=== PATIENT | male | born 1955 | race Caucasian/White ===

== ENCOUNTER 2022-08-26 22:04 | Emergency (ER) | payer OTHER, SELFPAY ==
[2022-08-26 22:06] VITALS: BP 148/92; PULSE 79; RESP 20; TEMP 36.6; O2SAT 95; BMI 25.1
[2022-08-26 23:46] VITALS: BP 132/90; PULSE 83; RESP 15; TEMP 36.8; O2SAT 95
--- OUTSIDE RECORDS SUMMARY | 2022-08-26 23:51 | XMS_ITS | Continuity of Care Document ---
:1955 Author Organization [facility] Address [address] [place] [address]- Care Team Providers Name Role Phone Al Hamlin MD Primary Care Physician Encounter 02/13/20 - 02/20/20 [facility] [address] [place] [address]- [facility] Discharge Disposition: GOALS MET Allergies, Adverse Reactions, Alerts No Known Medication Allergies Medications Etanercept Subcutaneous Infusion, Every week, 0 Refills, Maintenance, 02/11/20 1:28:00 EDT Start Date: 02/11/20 Status: Orderedgabapentin 100 mg oral capsule 100 mg, 1, capsule, By Mouth, 3 times a day, # 90 capsule, Refills 0, Tot. Refills 0, Maintenance, 02/12/20 13:36:00 EDT, Route to Pharmacy Electronically, [facility]/pharmacy #[id number], 180, cm, 02/12/20 12:08:00 EDT, Height, 84, kg, 02/11/20 9:25:00 EDT, Dry W... Start Date: 02/12/20 Status: OrderedMethotrexate = 2 mg, Every week, 0 Refills, Maintenance, 02/11/20 1:30:00 EDT Start Date: 02/11/20 Status: Ordered
--- OUTSIDE RECORDS SUMMARY | 2022-08-26 23:51 | XMS_ITS | Continuity of Care Document ---
:1955 Author Organization [facility] Address [address] [place] [id number]- Care Team Providers Name Role Phone Al Hamlin MD Primary Care Physician [place] [facility] [place] 03/13/[address] [address]- [facility] Attending Physician: Not on Staff, Attending MD Admitting Physician: Not on Staff, Admitting MD Referring Physician: Not on Staff, Referring MD Allergies, Adverse Reactions, Alerts No Known Medication Allergies Medications Etanercept Subcutaneous Infusion, Every week, 0 Refills, Maintenance, 02/11/20 1:28:00 EDT Start Date: 02/11/20 Status: Orderedgabapentin 100 mg oral capsule 100 mg, 1, capsule, By Mouth, 3 times a day, # 90 capsule, Refills 0, Tot. Refills 0, Maintenance, 02/12/20 13:36:00 EDT, Route to Pharmacy Electronically, [facility]/pharmacy #[id number], 180, cm, 02/12/20 12:08:00 EDT, Height, 84, kg, 02/11/20 9:25:00 EDT, Dry W... Start Date: 02/12/20 Status: OrderedMethotrexate = 2 mg, Every week, 0 Refills, Maintenance, 02/11/20 1:30:00 EDT Start Date: 02/11/20 Status: Ordered
--- OUTSIDE RECORDS SUMMARY | 2022-08-26 23:52 | XMS_ITS | Continuity of Care Document ---
:1955 Author Organization [facility] Address [address] [place] [id number]- Care Team Providers Name Role Phone Al Hamlin MD Primary Care Physician Encounter [facility] [place] Date(s): 02/10/20 - 02/12/[address] [address]- [facility] Encounter Diagnosis Acetabular fracture (Final) - 02/10/20 Discharge Disposition: A-D/C Home Attending Physician: Kemi Villalobos DO Admitting Physician: Cory Melendez DO Referring Physician: Not on Staff, Referring MD Allergies, Adverse Reactions, Alerts No Known Medication Allergies Medications Etanercept Subcutaneous Infusion, Every week, 0 Refills, Maintenance, 02/11/20 1:28:00 EDT Start Date: 02/11/20 Status: Orderedgabapentin 100 mg oral capsule 100 mg, 1, capsule, By Mouth, 3 times a day, # 90 capsule, Refills 0, Tot. Refills 0, Maintenance, 02/12/20 13:36:00 EDT, Route to Pharmacy Electronically, [facility]/pharmacy #[id number], 180, cm, 02/12/20 12:08:00 EDT, Height, 84, kg, 02/11/20 9:25:00 EDT, Dry W... Start Date: 02/12/20 Status: OrderedMethotrexate = 2 mg, Every week, 0 Refills, Maintenance, 02/11/20 1:30:00 EDT Start Date: 02/11/20 Status: OrderedoxyCODONE 5 mg oral tablet 5 mg, 1, tablet, By Mouth, Every 6 hours, PRN, for 5 days, # 20 tablet, Refills 0, Tot. Refills 0, Acute 02/17/20 13:36:00 EDT, Pain , Severe, 02/12/20 13:36:00 EDT, Route to Pharmacy Electronically, [facility]/pharmacy #[id number], Partial fill upon patient reque... Start Date: 02/12/20 Stop Date: 02/17/20 Status: Ordered Results Radiology Reports Exam Date Time Procedure Performing Provider Status 02/10/20 3:03 PM Elbow Min 3 Views Left Azul Peoples; Auth (Ve rified) Notes:(Elbow Min 3 Views Left) Reason For Exam: PainRESULT: Elbow Min 3 Views Left Elbow Min 3 Views Left, 3 views Reason: Pain; Clinical Question(s): Fracture; Hx of Present Illness: Fall from ladder 10 ft. COMPARISON: None. FINDINGS: No fracture or dislocation. No arthritic changes. No joint effusion. IMPRESSION: No acute osseous injury identified. WSN: [id number] Ordering Physician: Albaro Villagomez Dictated By: Jin Dumont MD Dictated Date/Time: 02/10/20 3:12 pm Reviewed By: Jin Dumont MD Signed By: Jin Dumont MD Signed Date/Time: 02/10/20 3:12 pm Transcribed By: TANVIR Transcribed Date/Time: 02/10/20 3:09 pm Vital Signs Most recent to oldest [Reference 1 2 3 Range]: Height 180 cm 180 cm 180 cm (02/12/20 12:08 PM) (02/12/20 8:04 AM) (02/12/20 4:10 AM) Weight 84 kg (02/11/20 1:03 AM) Oxygen Saturation [94-100 %] 94 % 94 % 95 % (02/12/20 12:08 PM) (02/12/20 8:04 AM) (02/12/20 4:10 AM) Pulse Rate [55-90 bpm] 58 bpm 68 bpm 75 bpm (02/12/20 12:08 PM) (02/12/20 8:04 AM) (02/12/20 4:10 AM) Body Mass Index [18.5-24.99] 25.93 *H* (02/11/20 1:03 AM) Blood Pressure [90-138/55-84 mm 105/64 mm Hg 102/67 mm Hg 102/73 mm Hg Hg] (02/12/20 12:08 PM) (02/12/20 8:04 AM) (02/12/20 4:10 AM) Respiratory Rate [16-30 br/min] 18 br/min 18 br/min 18 br/min (02/12/20 3:31 PM) (02/12/20 12:08 PM) (02/12/20 9:42 AM) Temperature [96.8-100.4 DegF] 98.1 DegF 97.3 DegF 98 .0 DegF (02/12/20 12:08 PM) (02/12/20 8:04 AM) (02/12/20 4:10 AM) Mode of Delivery (Oxygen) Room air Room air Room a ir (02/12/20 12:08 PM) (02/12/20 8:04 AM) (02/12/20 4:10 AM) Blood pressure sites Arm, right Arm, right Arm, right (02/12/20 12:08 PM) (02/12/20 8:04 AM) (02/12/20 4:10 AM) Temperature Route Oral Oral Oral (02/12/20 12:08 PM) (02/12/20 8:04 AM) (02/12/20 4:10 AM) Dry Weight 84 kg (02/11/20 1:03 AM)
--- OUTSIDE RECORDS SUMMARY | 2022-08-26 23:52 | XMS_ITS | Continuity of Care Document ---
:1955 Author Organization [facility] Address [address] [place] [id number]- Care Team Providers Name Role Phone El MOREIRA MD, Cedric Hopkins Primary Care Physician [place] [facility] [place]/14/20 - 08/14/[address] [address]- [facility] Discharge Disposition: A-D/C Home Attending Physician: Topher Gregorio MD Admitting Physician: Topher Gregorio MD Referring Physician: Topher Gregorio MD Allergies, Adverse Reactions, Alerts No Known Medication Allergies Medications Etanercept Subcutaneous Infusion, Every week, 0 Refills, Maintenance, 02/11/20 1:28:00 EDT Start Date: 02/11/20 Status: Orderedgabapentin 100 mg oral capsule 100 mg, 1, capsule, By Mouth, 3 times a day, # 90 capsule, Refills 0, Tot. Refills 0, Maintenance, 02/12/20 13:36:00 EDT, Route to Pharmacy Electronically, [facility]/pharmacy #[id number], 180, cm, 02/12/20 12:08:00 EDT, Height, 84, kg, 02/11/20 9:25:00 EDT, Dry W... Start Date: 02/12/20 Status: OrderedMethotrexate = 2 mg, Every week, 0 Refills, Maintenance, 02/11/20 1:30:00 EDT Start Date: 02/11/20 Status: Ordered Vital Signs Most recent to oldest 1 2 3 [Reference Range]: Weight 83.8 kg (08/14/20 1:00 PM) Oxygen Saturation [94-100 %] 98 % 99 % 97 % (08/14/20 5:00 PM) (08/14/20 4:00 PM) (08/14/20 3:5 7 PM) Pulse Rate [55-90 bpm] 95 bpm 94 bpm *H* *H* (08/14/20 5:00 PM) (08/14/20 1:00 PM) Blood Pressure [90-138/55-84 mm 111/72 mm Hg 116/81 mm Hg 125/81 mm Hg Hg] (08/14/20 5:00 PM) (08/14/20 4:00 PM) (08/14/20 3:5 7 PM) Respiratory Rate [16-30 br/min] 18 br/min 18 br/min 21 br/min (08/14/20 5:00 PM) (08/14/20 4:00 PM) (08/14/20 3:5 7 PM) Temperature [96.8-100.4 DegF] 97.7 DegF 98.9 DegF 98 .9 DegF (08/14/20 5:15 PM) (08/14/20 5:00 PM) (08/14/20 1:0 0 PM) Liters per Minute 2 L/min 2 L/min 2 L/min (08/14/20 4:00 PM) (08/14/20 3:57 PM) (08/14/20 3:5 5 PM) Mode of Delivery (Oxygen) Room air Nasal cannula Nasal cannula (08/14/20 5:00 PM) (08/14/20 4:00 PM) (08/14/20 3:5 7 PM) Blood pressure sites Arm, right Arm, right Arm, right (08/14/20 5:00 PM) (08/14/20 3:57 PM) (08/14/20 3:5 5 PM) Temperature Route Temporal Temporal Temporal (08/14/20 5:15 PM) (08/14/20 5:00 PM) (08/14/20 1:0 0 PM) Dry Weight 83.8 kg (08/14/20 1:00 PM)
--- NOTE | 2022-08-27 | PC.NURSE ---
Pt states he noticed he had something on his back similar to a cyst and continued to increase in size in the midsection of his back. Onset 5 days ago. He states feeling pressure in the area and that movement increases the pain. Patient denies n/v/d, headache, diarrhea. Patient denies any other symptoms aside from the localized pain coming from the cyst .
--- NOTE | 2022-08-27 00:17 | ED_ITS ---
HPI - Skin/Abscess/Foreign Bdy General Chief complaint: Skin/Abscess/Foreign Body Stated complaint: Infection/Cyst on back Time Seen by Provider: 08/26/22 23:33 Source: patient Mode of arrival: ambulatory Limitations: no limitations History of Present Illness HPI narrative: 67 yold male presents to the ED for back abscess that is draining. He states mass has been present for the past 4 days. he states the past two days it has increased in size draining the past two days Related Data Previous Rx's Medication Instructions Recorded cephalexin 500 mg capsule 500 mg PO QID 7 days #28 caps 08/27/22 doxycycline hyclate 100 mg capsule 100 mg PO BID 7 days #14 caps 08/27/22 Allergies Allergy/AdvReac Type Severity Reaction Status Date / Time No Known Allergies Allergy Verified 08/26/22 22:08 Review of Systems Review of Systems: back absces Yes all other systems are reviewed and are negative [facility] Past Medical History Medical History (Updated 08/27/22 @ 01:26 by DARIAN Griffiths) Rheumatoid arthritis Social History Social History Alcohol intake: never Smoked in Last 30 Days: No Use of substances other than those prescribed or required for medical reasons: No Advance Directives: No Physical Exam Vital Signs: Vital Signs: Last Vital Signs Temp 98.2 F 08/26/22 23:46 Pulse 83 08/26/22 23:46 Resp 15 08/26/22 23:46 BP 132/90 H 08/26/22 23:46 Pulse Ox 95 08/26/22 23:46 O2 Del Method 08/26/22 23:46 BMI result Body Mass Index 25.1 Const: General: cooperative, healthy appearing, comfortable, no acute distress, well developed, alert, awake and Physically active Orientation/consciousness: oriented to time and patient oriented x3 HEENT: Head: Yes normal to inspection, Yes No palpable skull fracture present, Yes normocephalic, Yes atraumatic and No abrasion Eyes: General: appearance normal, both eyes and all related structures Neck: Neck: Yes normal visual inspection, Yes full ROM, Yes no lymphadenopathy, Yes no meningeal signs, Yes trachea midline, Yes supple, No anterior neck swelling and No tender Chest: Chest palpation & inspection: normal inspection of the chest and normal palpation of entire chest wall Resp: Effort & Inspection: normal respiratory effort and able to speak in complete sentences Auscultation: clear to auscultation bilaterally Cardio: Jugular venous distension: no JVD Heart sounds: S1 normal heart sound present and S2 normal heart sound present GI: Inspection: Yes normal to inspection and No abdominal wall ecchymosis Palpation (GI): Soft to palpation, not firm, nontender, no guarding and not rigid : General: No CVA tenderness and Yes no CVA tenderness Back/Spine/Pelvis: Back: no CVA tenderness, No CVA tenderness and No back tenderness Back/spine/pelvis image: 1. Positive for tenderness erythema drainage or fluctuance on palpation Skin: Other: Back abscess General skin exam: no rashes or lesions noted and elasticity normal Neuro: General: oriented to time, patient oriented x3, gait normal, no meningeal signs and CN's II-XI intact bilaterally Cranial nerves: Yes CN's II-XII intact bilaterally Extrem: General: Yes normal to inspection and Yes full ROM Psych: Appearance: grossly normal, well kempt and not disheveled Course Course Course Narrative: Will drain abscess. Reevaluation(s) Reevaluation #1: Abscess and exercises 8 mL of lidocaine 1%. Wound clean with sterile saline and Betadine iodine. Size 11 blade was used for incision. Yellow pus was squeezed. Forceps used to open pockets to squeeze more abscess. Abscess washout was done with sterile saline. Packing placed. Tdap ordered. Patient to be discharged with antibiotics Time: 01:25 MDM - Skin/Abscess/Foreign Bdy MDM Narrative Medical decision making narrative: Abscess Discharge Plan Discharge Clinical Impression: Abscess of skin or subcutaneous tissue Patient Disposition: Home, Self-Care Additional Instructions: You will be discharged with antibiotics. Return to the ED immediately for worsening pain, increased drainage, fever, chills, or any other concerning symptoms. Packing should be changed in the ED in 2 days. Also follow up with PCP Prescriptions: New cephalexin 500 mg capsule 500 mg PO QID 7 Days Qty: 28 0RF doxycycline hyclate 100 mg capsule 100 mg PO BID 7 Days Qty: 14 0RF Stand Alone Forms: Work/School Release Print Language: Italian
[2022-08-27] MEDS: Diphth,Pertus(ACell),Tet Adult 0.5 ML SYRINGE IM (01:52)
[2022-08-27 02:00] VITALS: BP 131/88; PULSE 73; RESP 13; TEMP 36.9; O2SAT 97
--- NOTE | 2022-08-27 02:00 | PC.NURSE ---
Discharge instructions given and explained to patient. All of patient's questions answered. Patient ambulates safely, steady gait. Dtap booster 0.5 ml IM booster administered at discharge, site L deltoid.
[2022-08-27] MEDS: Lidocaine HCl 1 % MPF 2 ML VIAL INFILTRATI ×4 (02:13→02:14)
== END 2022-08-27 02:15 | disposition home or self-care (01) ==
PROVIDERS: Emergency Provider Student in an Organized Health Care Education/Training Program
DX: L02.212 Cutaneous abscess of back [any part, except buttock and flank] (principal)
CPT/HCPCS: 10061; 90471; 90715; 99284

== ENCOUNTER 2023-08-21 17:19 | Emergency (ER) | payer MEDICARE, SELFPAY ==
[2023-08-21 17:31] VITALS: BP 102/67; PULSE 90; RESP 16; TEMP 36.8; O2SAT 95; BMI 27.1
--- NOTE | 2023-08-21 17:32 | ED_ITS ---
HPI - Back Pain/Injury General Chief Complaint: Back Pain/Injury Stated Complaint: lower back pain Time Seen by Provider: 08/21/23 17:40 Source: patient Mode of arrival: ambulatory Limitations: no limitations History of Present Illness HPI Narrative: 68-year-old male with history of rheumatoid arthritis, previous herniated disc presents to the ER with complaints of lower back pain after bending over on and feeling pain in his back. No radiation of pain. No numbness/ tingling/ weakness in extremities. No numbness the groin. No bowel or bladder incontinence. No fevers or chills. Patient trying [id number] medications with continued symptoms. Related Data Previous Rx's Medication Instructions Recorded cephalexin 500 mg capsule 500 mg PO QID 7 days #28 caps 08/27/22 doxycycline hyclate 100 mg capsule 100 mg PO BID 7 days #14 caps 08/27/22 cyclobenzaprine 10 mg tablet 10 mg PO TID PRN muscle spasm #15 08/21/23 tabs lidocaine 5 % topical patch 1 patch topical DAILY #15 ea 08/21/23 (Lidoderm) prednisone 20 mg tablet 40 mg (2 x 20 mg) PO DAILY #10 tabs 08/21/23 Allergies Allergy/AdvReac Type Severity Reaction Status Date / Time No Known Allergies Allergy Verified 08/26/22 22:08 Review of Systems Review of Systems: Yes all other systems are reviewed and are negative Constitutional: Constitutional: Reports no additional constitutional c omplaints, Denies body ache(s), Denies chills, Denies fever(s), Denies headache(s) and Denies weakness Eyes: Eyes: Reports no additional eye complaints and Denies change in vision ENT: Reports system reviewed and no additional complaints, except as documented, Denies dizziness, Denies headache(s), Denies nasal congestion, Denies nasal discharge and Denies neck pain Cardiovascular: Cardiovascular: Reports no additional cardiovascular complaints, Denies chest pain, Denies leg edema and Denies dyspnea Respiratory: Respiratory: Reports no additional respiratory complaints, Denies cough and Denies dyspnea Gastrointestinal: Gastrointestinal: Reports no additional gastrointestinal complaints, Denies abdominal pain, Denies diarrhea, Denies nausea and Denies vomiting Genitourinary: Genitourinary: Denies urinary incontinence Musculoskeletal: Musculoskeletal: Reports no additional musculoskeletal complaints, Reports back pain, Denies arthralgias, Denies joint swelling, Denies neck pain, Denies numbness and Denies tingling Integumentary/Breasts: Skin/Breast: Reports system reviewed and no additional complaints, except as docu and Denies rash Neurologic: Reports system reviewed and no additional complaints, except as documented, Denies Abnormal speech present, Denies dizziness, Denies headache(s), Denies numbness, Denies tingling and Denies weakness PMF Past Medical History Attestation statement: The following information was validated with the patient. Source: old records reviewed and nursing notes reviewed Medical History Rheumatoid arthritis Social History Social History Alcohol intake: never Physical Exam Vital Signs: Vital Signs: Last Vital Signs Temp 98.2 F 08/21/23 17:31 Pulse 90 08/21/23 17:31 Resp 16 08/21/23 17:31 BP 102/67 08/21/23 17:31 Pulse Ox 95 08/21/23 17:31 O2 Del Method Room Air 08/21/23 17:31 BMI result Body Mass Index 27.1 Const: General: cooperative, healthy appearing, comfortable and no acute distress Orientation/consciousness: patient oriented x3 Limitations: no limitations HEENT: Head: Yes normal to inspection Ears: hearing grossly normal bilaterally General nose exam: Normal external nose present Face and sinus: Yes normal facial exam Mouth: Normal oral and palatal mucosa present Throat: Yes posterior oropharynx normal Eyes: General: appearance normal, both eyes and all related structures Pupils: Equal, round and reactive pupils present Neck: Neck: Yes normal visual inspection Chest: Chest palpation & inspection: normal inspection of the chest Resp: Effort & Inspection: normal respiratory effort Auscultation: clear to auscultation bilaterally Cardio: Rate: regular rate Rhythm: regular rhythm Peripheral pulses: Peripheral pulses 2+ throughout GI: Inspection: Yes normal to inspection Palpation (GI): Soft to palpation and nontender Auscultation: normal bowel sounds Back/Spine/Pelvis: Other: There is tenderness the lumbar lower spine, bilateral paraspinal areas which is worsened with flexion and extension of the lumbar spine. Thoracic/Lumbar Spine: thoracic and lumbar spine normal to inspection Skin: General skin exam: no rashes or lesions noted Neuro: General: patient oriented x3, no focal motor deficits and normal sensation to monofilament Cranial nerves: Yes Equal, round and reactive pupils present Cognition (Neuro): normal cognition Speech: No Abnormal speech present Gait exam (Neuro): Normal gait present Motor exam (neuro): 5/5 motor strength present throughout Sensory Exam: Normal double simultaneous stimulation for sensation Deep tendon reflexes (DTR's): Right patellar reflex intensity grade: 2+ and Left patellar reflex intensity grade: 2+ Extrem: General: Yes normal to inspection Medical Decision Making Medical Decision Making MDM Narrative: 68-year-old male with history of rheumatoid arthritis, previous herniated disc presents to the ER with complaints of lower back pain after bending over on and feeling pain in his back. No radiation of pain. No numbness/ tingling/ weakness in extremities. No numbness the groin. No bowel or bladder incontinence. No fevers or chills. Patient trying [id number] medications with continued symptoms. Normal neuro exam with no focal deficits. No red flag symptoms. Likely lumbar strain. Patient will be discharged home with Flexeril, Lidoderm patches, prednisone course. Recommend he follow up outpatient with primary care for any continued symptoms. He is currently working on establishing 1. He may need outpatient MRI for any continued symptoms. I do not feel that he needs an emergent MRI. Reviewed worrisome signs and symptoms when to return to the emergency room. Comfortable plan for discharge home. Differential Diagnosis Differential Diagnoses: The differential diagnosis associated with the presentation includes Herniated disc, lumbar strain Low concern for cord compression, cauda equina, epidural abscess with normal neuro exam with no focal deficits, no red flag symptoms, no history of immunocompromise state or IV drug abuse Low concern for fracture with no reports of trauma Low concern for renal colic or pyelonephritis with no urinary symptoms. Low concern for AAA gradual onset of symptoms. Low concern for malignancy with no red flag symptoms Admission/Observation Consideration of admission/observation: Escalation of care including admission/observation considered normal neuro exam with no focal deficits, no need for emergent MRI, neurosurgery consultation or transfer to tertiary care center. Tests considered The following testing was considered but not selected: normal neuro exam with no focal deficits, no need for emergent MRI, Prescription Management I considered prescription management with: Pain Medication Social Determinants Patient?s care significantly limited by Social Determinants of Health including: Problems related to primary support group Discharge Plan Discharge Clinical Impression: Lumbar strain Patient Disposition: Home, Self-Care Instructions: Low Back Strain (ED) Additional Instructions: heat or ice to the area gentle stretching continue Motrin or Tylenol establish a primary care doctor as he may need to have an outpatient MRI for any continued symptoms. Return for incontinence of urine/stool, fever, numbness in the groin Prescriptions: New cyclobenzaprine 10 mg tablet 10 mg PO TID PRN (Reason: muscle spasm) Qty: 15 0RF lidocaine [Lidoderm] 5 % adhesive patch,medicated 1 patch topical DAILY Qty: 15 0RF Rx Instructions: leave on most painful area for up to 12 hrs prednisone 20 mg tablet 40 mg PO DAILY Qty: 10 0RF No Action cephalexin 500 mg capsule 500 mg PO QID 7 Days Qty: 28 0RF doxycycline hyclate 100 mg capsule 100 mg PO BID 7 Days Qty: 14 0RF Referrals: Physician,Unknown J [Primary Care Provider] -
== END 2023-08-21 17:46 | disposition home or self-care (01) ==
PROVIDERS: Emergency Provider Student in an Organized Health Care Education/Training Program
DX: S39.012A Strain of muscle, fascia and tendon of lower back, initial encounter (principal); X50.9XXA Other and unspecified overexertion or strenuous movements or postures, initial encounter; Y93.9 Activity, unspecified; Y92.9 Unspecified place or not applicable; Y99.9 Unspecified external cause status
CPT/HCPCS: 99282; 99283

== ENCOUNTER 2024-01-27 12:04 | Emergency (ER) | payer MEDICARE, SELFPAY ==
[2024-01-27 12:12] VITALS: BP 131/87; PULSE 85; RESP 16; TEMP 36.4; O2SAT 96; BMI 24.9
--- NOTE | 2024-01-27 12:15 | ED_ITS ---
HPI - General Adult General Chief complaint: Dental/Oral Stated complaint: mouth sores Time Seen by Provider: 01/27/24 12:57 History of Present Illness HPI narrative: patient with history of rheumatoid arthritis complains of mouth sores which began after he started taking antibiotics for a possible sinus infection prescribed by his primary doctor He took a course of amoxicillin without relief of his congestion and runny nose with green mucus so he was then prescribed a 2nd course of 14 days of doxycycline and developed sores in his mouth, he saw his doctor 3 days ago and was started on nystatin mouthwash and magic mouthwash for thrush, he has been taking the medicine for several days and it has not improved and his sinuses continue to be mildly congested with occasional green mucus He denies shortness of breath he denies headache he denies sinus pain, pain is not worse with his head down, no fever no chills no nausea no vomiting no cough no chest pain no trouble swallowing, but there is some mild pain with swallowing Related Data Previous Rx's ?Medication ?Instructions ?Recorded cephalexin 500 mg capsule 500 mg PO QID 7 days #28 caps 08/27/22 doxycycline hyclate 100 mg capsule 100 mg PO BID 7 days #14 caps 08/27/22 cyclobenzaprine 10 mg tablet 10 mg PO TID PRN muscle spasm #15 08/21/23 tabs lidocaine 5 % topical patch 1 patch topical DAILY #15 ea 08/21/23 (Lidoderm) prednisone 20 mg tablet 40 mg (2 x 20 mg) PO DAILY #10 tabs 08/21/23 Allergies Allergy/AdvReac Type Severity Reaction Status Date / Time No Known Allergies Allergy Verified 01/27/24 12:14 [facility] Past Medical History Medical History Rheumatoid arthritis Social History Social History Alcohol intake: never Physical Exam ED Vital Signs: Vital Signs - 24 hr 01/27/24 12:12 Temperature 97.5 F Pulse Rate 85 Respiratory Rate 16 Blood Pressure 131/87 Pulse Oximetry 96 Oxygen Delivery Method Room Air BMI result Body Mass Index 24.9 general appearance, comfortable cooperative no acute distress Eyes no redness or discharge The mouth there is a white coating on the tongue that scrapes off with the tongue depressor, the mucous membranes are moist, the pharynx appeared normal the voice was normal there is no trismus, no impairment of breathing or swallowing Neck is supple without stridor The sinuses were nontender, no pain when he bends his head forward, no evidence of congestion now The chest is clear to auscultation with full symmetric equal breath sounds Heart no murmur Extremities full range of motion x4 Course Course Course Narrative: This is an RME: Additional HPI, ROS, PE not included below will be deferred to primary provider. 68 year old male presents w/ sores on mouth x few days wrosening. Recently on ATBX X2. On magic mouth wash and nystatin and not helping Patient just started course of treatment for thrush, exam confirms it is likely thrush and so he will continue the present treatment He is advised most sinus problems are virus but as is started the doxycycline for a possible bacterial infection he will continue his antibiotic He is advised that if symptoms do not improve after treatment he should see his doctor for referral to Ear Nose and Throat as he has had symptoms of postnasal drip and sinus congestion for a very long time Discharge Plan Discharge Additional Instructions: you are being treated with antibiotic for sinusitis by her doctor It may help but in many cases if it has a virus the antibiotic may not help You have thrush in her mouth and your doctor prescribed very good treatment with nystatin mouthwash so continue all treatments until completed If needed follow with primary doctor and ask for referral to ear nose and throat as you mentioned you have had chronic problems off and on for many months with her sinuses Return to the ER any time any worse condition or any concerns Prescriptions: No Action cephalexin 500 mg capsule 500 mg PO QID 7 Days Qty: 28 0RF doxycycline hyclate 100 mg capsule 100 mg PO BID 7 Days Qty: 14 0RF cyclobenzaprine 10 mg tablet 10 mg PO TID PRN (Reason: muscle spasm) Qty: 15 0RF lidocaine [Lidoderm] 5 % adhesive patch,medicated 1 patch topical DAILY Qty: 15 0RF Rx Instructions: leave on most painful area for up to 12 hrs prednisone 20 mg tablet 40 mg PO DAILY Qty: 10 0RF Print Language: Georgian
--- NOTE | 2024-01-27 13:46 | PC.NURSE ---
discharged by provider
== END 2024-01-27 13:47 | disposition home or self-care (01) ==
PROVIDERS: Emergency Provider Emergency Medicine; PCP Internal Medicine
DX: K13.79 Other lesions of oral mucosa (principal); J32.9 Chronic sinusitis, unspecified
CPT/HCPCS: 99281

== ENCOUNTER 2025-10-06 01:23 | Emergency (ER) | payer MEDICARE, SELFPAY ==
--- NOTE | 2025-10-06 | ECG_ITS ---
Test Reason : CHEST TIGHTNESS Blood Pressure : */* mmHG Vent. Rate : 74 BPM Atrial Rate : 74 BPM P-R Int : 188 ms QRS Dur : 100 ms QT Int : 394 ms P-R-T Axes : 72 -32 53 degrees QTcB Int : 437 ms Normal sinus rhythm Left axis deviation Abnormal ECG No previous ECGs available Referred By: Generic ED Physician Electronically Signed By: TALI GRAF MD
--- NOTE | ~2025-10-06 | CT_ITS ---
CLINICAL HISTORY: Fall; Unwitnessed; + Head strike; ? LOC CT cervical spine without contrast Comparison: None provided Findings: There is straightening of the normal cervical lordosis. There is grade 1 anterolisthesis of C4 on C5. Multilevel cervical spine degenerative changes are present characterized by disc height loss, endplate sclerosis and disc osteophyte complex formation. No acute fractures or dislocations. No acute findings on limited view of the intracranial contents. Soft tissues of the neck are normal. Lung apices are clear. IMPRESSION: No acute findings. This document has been electronically signed by: Kalia Lala MD, PHD on 10/06/2025 04:13:54
--- NOTE | ~2025-10-06 | CT_ITS ---
CLINICAL HISTORY: Fall; Unwitnessed; + Head strike; ? LOC CT head without contrast Comparison: None provided Findings: No intra-axial mass, midline shift, hydrocephalus, or acute hemorrhage. No significant atrophy-like change or white matter disease. There is no sinus or mastoid fluid. The orbits are unremarkable. No skull fracture. IMPRESSION: 1. No acute intracranial findings. This document has been electronically signed by: Kalia Lala MD, PHD on 10/06/2025 04:12:25
[2025-10-06 01:31] VITALS: BP 112/70; BP 115/69; PULSE 72; PULSE 80; RESP 18; TEMP 37.1; O2SAT 97; O2SAT 98; BMI 24.4
[2025-10-06 01:37] VITALS: BP 115/69; PULSE 80; RESP 18; TEMP 37.1; O2SAT 98
[2025-10-06 01:54] LABS: MANUAL DIFF FLAG NO
[2025-10-06 01:56] LABS: Hematocrit 48.0 % (42.0-52.0); Hemoglobin 17.2 g/dl (14.0-18.0); Imm Gran Abs Auto 0.03 X10*3/uL (0.00-0.03); Imm Gran Pct Auto 0.3 % (0.0-0.4); Lymphocytes Absolute Auto 0.6 X10*3/uL (1.2-4.9); Mean Corpuscular HGB Conc 35.8 g/dl (31.0-36.0); Mean Corpuscular Hemoglobin 33.2 pg (27.0-33.0); Mean Corpuscular Volume 92.7 fL (80.0-98.0); NRBC Abs Auto 0.000 X10*3/uL (0.0-0.012); NRBC Pct Auto 0.0 /100WBC (0.0-0.2); Platelet Count 198 X10*3/uL (160-400); Red Blood Count 5.18 X10*6/uL (4.60-5.80); White Blood Count 8.9 X10*3/uL (4.8-10.8)
--- OUTSIDE RECORDS SUMMARY | 2025-10-06 02:17 | XMS_ITS ---
Author Name [facility] Organization Unknown Care Team Organization Name Specialty Phone Email Start Date End Da te [facility] FLORY SANDOVAL Primary Care 08/18/2022 4
--- OUTSIDE RECORDS SUMMARY | 2025-10-06 02:17 | XMS_ITS | Encounter Summary ---
Author Organization [facility] Address [address] [place] [address] Care Team Providers Care Preforms Laminator Name Role Phone Lissy Mercedes MD Primary Care Provider Encounter Details Date Type Department Care Team ([facility] Contact Info) Description 08/07/2025 Results Follow-Up Adult Medicine [address] [phone] Lissy Mercedes MD [address] [place] [address] Social History Tobacco Use Types Packs/Day Years Used Date Smoking Tobacco: Former Cigarettes 0 Q uit: 10/11/1977 Smokeless Tobacco: Never Alcohol Use Standard Drinks/Week Comments Yes 0 (1 standard drink = 0.6 oz pur e alcohol) Sex and Gender Information Value Date Recorded Sex Assigned at Not on file Legal Sex Male 9:34 PM EST Gender Identity Not on file Sexual Orientation Not on file documented as of this encounter Plan of Treatment Upcoming Encounters Date Type Department Care Team (Late Contact Info) Description 10/23/2025 9:30 AM EST Office Visit Adult Medicine [address] [phone] Lissy Mercedes MD [address] [place], [place] [id number] 12/10/2025 8:30 AM EST Consult Orthopedic Surgery - [address] [phone] Omari Mayfield DPM [address] [address] 12/14/2025 11:00 AM EST Hospital Encounter [facility] [place] [address] [place] [phone] Omari Mayfield DPM [address] [address] 12/14/2025 11:00 AM EST - 12/14/2025 1:30 PM EST Surgery [facility] OR [address] [place] [phone] Omari Mayfield DPM [address] [address] CHEILECTOMY RIGHT GREAT TOE [06116 (CPT )] 12/27/2025 8:30 AM EDT Office Visit Orthopedic Surgery - [place] [phone] [phone] Omari Mayfield DPM [address] [address] 04/23/2026 10:00 AM EDT Office Visit Adult Medicine [address] [phone] Lissy Mercedes MD [address] [place] [address] Scheduled Procedures Name Priority Associated Diagnoses Date/Ti me CHEILECTOMY GREAT TOE Arthritis of right foot Hammertoe of right foot 12/14/2025 11:00 AM EST ARTHROPLASTY TOE Arthritis of right foot Hammertoe of right foot 12/14/2025 11:00 AM EST documented as of this encounter Visit Diagnoses Not on filedocumented in this encounter Care Teams Preforms Laminator Relationship Specialty Start Date End Date Lissy Mercedes MD [address] [place] [address] PCP - General 12/04/22 documented as of this encounter
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
--- OUTSIDE RECORDS SUMMARY | 2025-10-06 02:17 | XMS_ITS | Data Portability ---
Author Organization [place] [facility], Allergy Address [address] [place] [id number] Care Team Providers Care Beater Out Leveling Machine Name Role Phone BHARATH JIN Primary Care Provider Assessment Encounter Date Assessment Date Assessment LastModified by Organization Details LastModified Time 12/01/2024 12/01/2024 69 year old male presents for follow up of sinusitis. He completed three week course of Doxycycline. His symptoms have not fully resolved. He is still bothered by green drainage. Nasal endoscopy today did not reveal polyps or purulence. I have issued him a prescription for Prednisone. Risks including AVN of the hip were discussed. He has taken Prednisone in the past and tolerated it well. Budesonide was prescribed to use in his sinus rinse. I will see him back in a couple of months. If his symptoms persist he may benefit from CT sinus at that time. Nasal endoscopy performed with Dr. Domingo. Not available 12/01/2024 14:49:44 02/26/2025 02/26/2025 70 year old male with recurrent sinusitis. He reports some improvement in his symptoms with three week course of Doxycyline followed by a course of Prednisone. I advised him to continue daily sinus rinses. I have renewed his prescription for Ipratropium. He reports continued sinus congestion and I have recommended updated CT of his sinuses and follow up with Dr. Breaux for further evaluation. Not available 02/26/2025 13:11:23 06/28/2025 06/28/2025 Chronic sinus inflammation is likely exacerbated by occupational exposure to dust, mold, and chemicals, as well as underlying allergies and immune suppression due to methotrexate use for rheumatoid arthritis. The patient also has a deviated septum, which may impair sinus drainage but does not predispose him to infections. I will order blood tests to evaluate for allergies and immune system function, including titers for common bacterial infections and protection from vaccines such as the pneumonia vaccine. Allergy testing will include panels for trees, grass, weeds, dust, mold, dog, and cat allergens. The patient will proceed to the second floor for blood work. I will review the results and communicate findings through the patient portal. If titers are low, additional vaccinations may be recommended. Further management will be based on the results of the allergy and immune panel. [email or web address] Not available 06/28/2025 08:53:39 Plan of Treatment Reminders Order Date Submit Date Provider Last Modified By Organization Details Last Modified Time Details Appointments None recorded. Lab unlisted lab - allergens, zone 1 2024 [facility], [address], [place], [address], 03:18:05 clostridium tetani toxoid IgG Ab, QN, IA, serum or plasma 2024 025 [facility] ([facility] - All Locations), Patient Can Go To The Location Of Their Choice, 5 03:18:04 haemophilus influenzae B IgG Ab, quantitativ e, serum, immunoassay 2024 [facility] ([facility] - All Locations), Patient Can Go To The Location Of Their Choice, 5 03:18:04 unlisted lab - pneumococca l Ab (23 serotype) 2024 [facility] - [facility]), Patient Can Go To The Location Of Their Choice, 03:18:02 CBC w/ auto diff 2024 [facility] ([facility] - All Locations), Patient Can Go To The Location Of Their Choice, 5 03:18:01 ige, total, serum 2024 025 [facility] ([facility] - All Locations), Patient Can Go To The Location Of Their Choice, 5 03:18:06 immunoglobu mallory iga+igg+igm , quantitativ e, serum 2024 025 [facility] (Centralized Electronic Ordering - All Locations), Patient Can Go To The Location Of Their Choice, 5 03:18:03 igg subclasses + total, serum 2024 025 [facility] (Centralized [facility] Ordering - All Locations), Patient Can Go To The Location Of Their Choice, [id number] 5 03:18:03 Referral None recorded. Procedures None recorded. Surgeries None recorded. Imaging CT, maxillofaci al, w/o contrast 2024 025 [facility], [address] [place] [address] [place], [address], 13:27:37 Medication Orders ipratropium bromide 21 mcg (0.03 %) nasal spray 2024 025 [facility]/Pharmacy #[id number], [address] [place], [address], 10:25:07 prednisone 20 mg tablet 2024 025 [email or web address] [facility]/Pharmacy #[id number], [address] [place], [address], 08:29:56 budesonide 0.5 mg/2 mL suspension for nebulizatio n 2024 025 [email or web address] [facility]/Pharmacy #[id number], [address] [place], [address], 15:14:59 Patient TargetsNo targets recorded. Patient Instructions Encounter Date Encounter Id Patient Instructions Last Modified By Organization Details Last Modified Time 06/28/2025 [id number] - Proceed to the second floor for blood work. - Await communication through the patient portal regarding test results and further recommendations. christy Not available 06/28/2025 08:53:40 Please note: Parts of this encounter note have been generated by AI based on audio conversation. Patient consent was required prior to utilizing this technology. Content review was required prior to finalizing the note. christy Not available 06/28/2025 08:53:40 Reason for Referral None Reported. Results Created Date Observation Date Name Description Value Unit Range Abnormal Flag Note LastModifiedBy Organization Detail LastModifiedTime 06/28/2006/28/2025 CBC WITH DIFFE RENTI AL/PL ATELE T WBC 5.0 x10e3 /uL 3.4-10 .8 normal Not Available [facility] ([facility]) [address] [place], [address], 07/04/2025 03:17:59 06/28/2006/28/2025 CBC WITH DIFFE RENTI AL/PL ATELE T RBC 4.61 x10e6 /uL 4.14-5 .80 normal Not Available [facility] ([facility]) [address] [place], [address], 07/04/2025 03:17:59 06/28/2006/28/2025 CBC WITH DIFFE RENTI AL/PL ATELE T hemoglobin 15.3 g/dL 13.0-1 7.7 normal Not Available [facility] ([facility]) [address] [place], [address], 07/04/2025 03:17:59 06/28/2006/28/2025 CBC WITH DIFFE RENTI AL/PL ATELE T hematocrit 45.5 % 37.5-5 1.0 normal Not Available [facility] ([facility]) [address] [place], [address], 07/04/2025 03:17:59 06/28/2006/28/2025 CBC WITH DIFFE RENTI AL/PL ATELE T MCV 99 fL 79-97 above high normal Not Available [facility] ([facility]) [address] [place], [address], 07/04/2025 03:17:59 06/28/20 25 06/28/2025 CBC WITH DIFFE RENTI AL/PL ATELE T MCH 33.2 pg 26.6-3 3.0 above high normal Not Available [facility] ([facility]) [address] [facility], [place], [address], 07/04/2025 03:17:59 06/28/20 25 06/28/2025 CBC WITH DIFFE RENTI AL/PL ATELE T MCHC 33.6 g/dL 31.5-3 5.7 normal Not Available [facility] ([facility]) [address] [facility], [place], [address], 07/04/2025 03:17:59 06/28/20 25 06/28/2025 CBC WITH DIFFE RENTI AL/PL ATELE T RDW 13.6 % 11.6-1 5.4 Not Available [facility] ([facility]) [address] [facility], [place], [address], 07/04/2025 03:17:59 06/28/20 25 06/28/2025 CBC WITH DIFFE RENTI AL/PL ATELE T platelets 204 x10e3 /uL 150-45 0 normal Not Available [facility] ([facility]) [address] [facility], [place], [address], 07/04/2025 03:17:59 06/28/2006/28/2025 CBC WITH DIFFE RENTI AL/PL ATELE T neutrophils 62 % not estab. normal Not Available [facility] ([facility]) [address] [facility], [place], [address], 07/04/2025 03:17:59 06/28/20 25 06/28/2025 CBC WITH DIFFE RENTI AL/PL ATELE T lymphs 23 % not estab. normal Not Available [facility] ([facility]) [address] [place], [address], 07/04/2025 03:17:59 06/28/20 25 06/28/2025 CBC WITH DIFFE RENTI AL/PL ATELE T monocytes 9 % not estab. normal Not Available [facility] ([facility]) [address] [place], [address], 07/04/2025 03:17:59 06/28/20 25 06/28/2025 CBC WITH DIFFE RENTI AL/PL ATELE T eos 5 % not estab. normal Not Available [facility] ([facility]) [address] [facility], [place], [address], 07/04/2025 03:17:59 06/28/2006/28/2025 CBC WITH DIFFE RENTI AL/PL ATELE T basos 1 % not estab. normal Not Available [facility] ([facility]) [address] [facility], [place], [address], 07/04/2025 03:17:59 06/28/20 25 06/28/2025 CBC WITH DIFFE RENTI AL/PL ATELE T immature cells RESIDENTIAL SUPPORT SPECIALIST Not Available [facility] ([facility]) [address] [place], [address], 07/04/2025 03:17:59 06/28/20 25 06/28/2025 CBC WITH DIFFE RENTI AL/PL ATELE T neutrophils (absolute) 3.2 x10e3 /uL 1.4-7. 0 normal Not Available [facility] ([facility]) [address] [place], [address], 07/04/2025 03:17:59 06/28/20 25 06/28/2025 CBC WITH DIFFE RENTI AL/PL ATELE T lymphs (absolute) 1.2 x10e3 /uL 0.7-3. 1 normal Not Available [facility] ([facility]) [address] [place], [address], 07/04/2025 03:17:59 06/28/20 25 06/28/2025 CBC WITH DIFFE RENTI AL/PL ATELE T monocytes(ab solute) 0.4 x10e3 /uL 0.1-0. 9 normal Not Available [facility] ([facility]) [address] [facility], [place], [address], 07/04/2025 03:17:59 06/28/20 25 06/28/2025 CBC WITH DIFFE RENTI AL/PL ATELE T eos (absolute) 0.3 x10e3 /uL 0.0-0. 4 normal Not Available [facility] ([facility]) [address] [facility], [place], [address], 07/04/2025 03:17:59 06/28/20 25 06/28/2025 CBC WITH DIFFE RENTI AL/PL ATELE T baso (absolute) 0.0 x10e3 /uL 0.0-0. 2 normal Not Available [facility] ([facility]) [address] [facility], [place], [address], 07/04/2025 03:17:59 06/28/20 25 06/28/2025 CBC WITH DIFFE RENTI AL/PL ATELE T immature granulocytes 0 % not estab. Not Available [facility] ([facility]) [address] [facility], [place], [address], 07/04/2025 03:17:59 06/28/20 25 06/28/2025 CBC WITH DIFFE RENTI AL/PL ATELE T immature grans (abs) 0.0 x10e3 /uL 0.0-0. 1 Not Available [facility] ([facility]) [address] [place], [address], 07/04/2025 03:17:59 06/28/20 25 06/28/2025 CBC WITH DIFFE RENTI AL/PL ATELE T NRBC RESIDENTIAL SUPPORT SPECIALIST Not Available [facility] ([facility]) [address] [place], [address], 07/04/2025 03:17:59 06/28/2006/28/2025 CBC WITH DIFFE RENTI AL/PL ATELE T hematology comments: RESIDENTIAL SUPPORT SPECIALIST Not Available [facility] ([facility]) [address], [place], [address], 07/04/2025 03:17:59 06/28/20 25 07/04/2025 PNEUM OCOCC AL AB (23 SEROT YPE) pneumo Ab type 1* 2.1 ug/mL >1.3 Not Available [facility] [address] [place], [address], 07/04/2025 03:18:02 06/28/2007/04/2025 PNEUM OCOCC AL AB (23 SEROT YPE) pneumo Ab type 3* 0.4 ug/mL >1.3 below low normal Not Available [facility] [address] [place], [address], 07/04/2025 03:18:02 06/28/2007/04/2025 PNEUM OCOCC AL AB (23 SEROT YPE) pneumo Ab type 4* 0.5 ug/mL >1.3 below low normal Not Available [facility] [address] [place], [address], 07/04/2025 03:18:02 06/28/2007/04/2025 PNEUM OCOCC AL AB (23 SEROT YPE) pneumo Ab type 8* 0.9 ug/mL >1.3 below low normal Not Available [facility] [address] [place], [address], 07/04/2025 03:18:02 06/28/2007/04/2025 PNEUM OCOCC AL AB (23 SEROT YPE) pneumo Ab type 9 (9N)* 3.3 ug/mL >1.3 Not Available [facility] [address] [place], [address], 07/04/2025 03:18:02 06/28/20 25 07/04/2025 PNEUM OCOCC AL AB (23 SEROT YPE) pneumo Ab type 12 (12F)* 0.2 ug/mL >1.3 below low normal Not Available [facility] [address] [place], [address], 07/04/2025 03:18:02 06/28/2007/04/2025 PNEUM OCOCC AL AB (23 SEROT YPE) pneumo Ab type 14* 4.4 ug/mL >1.3 Not Available [facility] [place], [address], 07/04/2025 03:18:02 06/28/2007/04/2025 PNEUM OCOCC AL AB (23 SEROT YPE) pneumo Ab type 17 (17F)* 0.6 ug/mL >1.3 below low normal Not Available [facility] [employer] [place], [address], 07/04/2025 03:18:02 06/28/2007/04/2025 PNEUM OCOCC AL AB (23 SEROT YPE) pneumo Ab type 19 (19F)* 2.3 ug/mL >1.3 Not Available [facility] [employer] [place], [address], 07/04/2025 03:18:02 06/28/2007/04/2025 PNEUM OCOCC AL AB (23 SEROT YPE) pneumo Ab type 2* 1.0 ug/mL >1.3 below low normal Not Available [facility] [place], [address], 07/04/2025 03:18:02 06/28/2007/04/2025 PNEUM OCOCC AL AB (23 SEROT YPE) pneumo Ab type 20* 21.5 ug/mL >1.3 Not Available [facility] [place], [address], 07/04/2025 03:18:02 06/28/2007/04/2025 PNEUM OCOCC AL AB (23 SEROT YPE) pneumo Ab type 22 (22F)* 0.6 ug/mL >1.3 below low normal Not Available [facility] [place], [address], 07/04/2025 03:18:02 06/28/2007/04/2025 PNEUM OCOCC AL AB (23 SEROT YPE) pneumo Ab type 23 (23F)* 15.3 ug/mL >1.3 Not Available [facility] [place], [address], 07/04/2025 03:18:02 06/28/2007/04/2025 PNEUM OCOCC AL AB (23 SEROT YPE) pneumo Ab type 26 (6B)* >34.0 ug/mL >1.3 Not Available [facility] [place], [address], 07/04/2025 03:18:02 06/28/2007/04/2025 PNEUM OCOCC AL AB (23 SEROT YPE) pneumo Ab type 34 (10A)* 9.5 ug/mL >1.3 Not Available [facility] [place], [address], 07/04/2025 03:18:02 06/28/2007/04/2025 PNEUM OCOCC AL AB (23 SEROT YPE) pneumo Ab type 43 (11A)* >11.6 ug/mL >1.3 Not Available [facility] [place], [address], 07/04/2025 03:18:02 06/28/2007/04/2025 PNEUM OCOCC AL AB (23 SEROT YPE) pneumo Ab type 5* 0.8 ug/mL >1.3 below low normal Not Available [facility] [place], [address], 07/04/2025 03:18:02 06/28/2007/04/2025 PNEUM OCOCC AL AB (23 SEROT YPE) pneumo Ab type 51 (7F)* 3.8 ug/mL >1.3 Not Available [facility] [address] [place] [address] [place], [address], 07/04/2025 03:18:02 06/28/2007/04/2025 PNEUM OCOCC AL AB (23 SEROT YPE) pneumo Ab type 54 (15B)* 6.0 ug/mL >1.3 Not Available [facility] [address] [place], [address], 07/04/2025 03:18:02 06/28/2007/04/2025 PNEUM OCOCC AL AB (23 SEROT YPE) pneumo Ab type 56 (18C)* >12.2 ug/mL >1.3 Not Available [facility] [place], [address], 07/04/2025 03:18:02 06/28/2007/04/2025 PNEUM OCOCC AL AB (23 SEROT YPE) pneumo Ab type 57 (19A)* 4.4 ug/mL >1.3 Not Available [facility] [address] [place], [address], 07/04/2025 03:18:02 06/28/2007/04/2025 PNEUM OCOCC AL AB (23 SEROT YPE) pneumo Ab type 68 (9V)* 4.3 ug/mL >1.3 Not Available [facility] [address] [place], [address], 07/04/2025 03:18:02 06/28/2007/04/2025 PNEUM OCOCC AL AB (23 SEROT YPE) pneumo Ab type 70 (33F)* 13.5 ug/mL >1.3 *This test was jade valadez and its perfo sacha e holli sterlingri stics deter mined by [employer] [facility]. It has not been clear ed or appro angelo by the U.S. Food and Drug Admin istra tion. FLAG Inter preta tion: A = Abnor mal, H = High, L = Low Not Available [facility] [address], [place], [address], 07/04/2025 03:18:02 06/28/20 25 06/29/2025 IGG, SUBCL ASSES (1-4) immunoglobul in g, qn, serum 998 mg/dL 603-16 13 Not Available [facility] ([facility]) [address] [place], [address], 07/04/2025 03:18:03 06/28/20 25 06/30/2025 IGG, SUBCL ASSES (1-4) IgG, subclass 1 430 mg/dL 248-81 0 Not Available [facility] ([facility]) [address] [place], [address], 07/04/2025 03:18:03 06/28/20 25 06/30/2025 IGG, SUBCL ASSES (1-4) IgG, subclass 2 342 mg/dL 130-55 5 Not Available [facility] ([facility]) [address] [place], [address], 07/04/2025 03:18:03 06/28/20 25 06/30/2025 IGG, SUBCL ASSES (1-4) IgG, subclass 3 44 mg/dL 15-102 Not Available [facility] ([facility]) [address] [place], [address], 07/04/2025 03:18:03 06/28/20 25 06/30/2025 IGG, SUBCL ASSES (1-4) IgG, subclass 4 27 mg/dL 2-96 Not Available [facility]) [address] [facility], [place], [address], 07/04/2025 03:18:03 06/28/20 25 06/29/2025 IMMUN OGLOB ULINS A/G/M , QN, SER immunoglobul in A, qn, serum 306 mg/dL 61-437 normal Not Available [facility] ([facility]) [address] [facility], [place], [address], 07/04/2025 03:18:03 06/28/20 25 06/29/2025 IMMUN OGLOB ULINS A/G/M , QN, SER immunoglobul in M, qn, serum 191 mg/dL 20-172 above high normal Not Available [facility] ([facility]) [address] [facility], [place], [address], 07/04/2025 03:18:03 06/28/20 25 07/02/2025 HAEMO PHILU S INFLU ENZAE B IGG haemophilus influenzae B IgG <0.15 ug/mL NOTE: An anti- Hib level of 0.15 ug/mL is gener ally accep shannan as the minim um level for prote ction . Optim al prote ction post- vacci natio n requi res a level great er than 1.00 ug/mL . Not Available [facility] ([facility]) [address] [facility], [place], [address], 07/04/2025 03:18:04 06/28/2006/30/2025 TETAN US ANTIT OXOID IGG AB tetanus antitoxoid IgG Ab 1.38 IU/mL <0.10 Inter preta tion: Non-P rotec tive <0.10 Prote ctive >=0.1 0 Resul ts for this test are for resea rch purpo ses only by the assay 's manuf actur er. The perfo rmanc e holli cteri stics of this produ ct have not been estab lishe d. Resul ts shoul d not be used as a diagn ostic proce dure witho ut confi rmati on of the diagn osis by [facility] medic ally estab lishe d diagn ostic produ ct or proce dure. Not Available [facility] ([facility]) [address] [facility], [place], [address], 07/04/2025 03:18:04 06/28/20 25 06/28/2025 ALLER GENS, ZONE 1 class description Commen t Level s of Speci fic IgE Class Descr iptio n of Class ----- ----- ----- ----- ----- -- ----- ----- ----- ----- ----- < 0.10 0 Negat greg 0.10 - 0.31 0/I Equiv ocal/ Low 0.32 - 0.55 I Low 0.56 - 1.40 II Moder ate 1.41 - 3.90 III High 3.91 - 19.00 IV Very High 19.01 - 100.0 0 V Very High >100. 00 Very High Not Available [facility] ([facility]) [address] [facility], [place], [address], 07/04/2025 03:18:05 06/28/20 25 06/30/2025 ALLER GENS, ZONE 1 I493-DbE D pteronyssinu s <0.10 kU/L class 0 Not Available [facility] ([facility]) [address] [place], [address], 07/04/2025 03:18:05 06/28/20 25 06/30/2025 ALLER GENS, ZONE 1 J823-RdO D farinae <0.10 kU/L class 0 Not Available [facility] ([facility]) [address] [place], [address], 07/04/2025 03:18:05 06/28/20 25 06/30/2025 ALLER GENS, ZONE 1 F982-SxC CAT dander <0.10 kU/L class 0 Not Available [facility] ([facility]) [address] [facility] [place], [address], 07/04/2025 03:18:05 06/28/20 25 06/30/2025 ALLER GENS, ZONE 1 O282-GzR dog dander <0.10 kU/L class 0 Not Available [facility] ([facility]) [address] [facility] [place], [address], 07/04/2025 03:18:05 06/28/20 25 06/30/2025 ALLER GENS, ZONE 1 t615-SqC bermuda grass <0.10 kU/L class 0 Not Available [facility] ([facility]) [address] [place], [address], 07/04/2025 03:18:05 06/28/20 25 06/30/2025 ALLER GENS, ZONE 1 z045-AlN bluegrass, [place] <0.10 kU/L class 0 Not Available [facility] ([facility]) [address] [facility] [place], [address], 07/04/2025 03:18:05 06/28/20 25 06/30/2025 ALLER GENS, ZONE 1 s829-NiW bahia grass <0.10 kU/L class 0 Not Available [facility] ([facility]) [address] [place], [address], 07/04/2025 03:18:05 06/28/20 25 06/30/2025 ALLER GENS, ZONE 1 Z296-HsA cockroach, belgian <0.10 kU/L class 0 Not Available [facility] ([facility]) [address] [place], [address], 07/04/2025 03:18:05 06/28/20 25 06/30/2025 ALLER GENS, ZONE 1 R750-SaO penicillium chrysogen <0.10 kU/L class 0 Not Available [facility] ([facility]) [address] [facility] [place], [address], 07/04/2025 03:18:05 06/28/20 25 06/30/2025 ALLER GENS, ZONE 1 Q517-EfD cladosporium herbarum <0.10 kU/L class 0 Not Available [facility] ([facility]) [address] [place], [address], 07/04/2025 03:18:05 06/28/20 25 06/30/2025 ALLER GENS, ZONE 1 Y665-QkM aspergillus fumigatus <0.10 kU/L class 0 Not Available [facility] ([facility]) [address] [place], [address], 07/04/2025 03:18:05 06/28/20 25 06/30/2025 ALLER GENS, ZONE 1 X667-PrF mucor racemosus <0.10 kU/L class 0 Not Available [facility] ([facility]) [address] [facility] [place] [address], 07/04/2025 03:18:05 06/28/20 25 06/30/2025 ALLER GENS, ZONE 1 N670-VjU alternaria alternata <0.10 kU/L class 0 Not Available [facility] ([facility]) [address] [facility] [place], [address], 07/04/2025 03:18:05 06/28/20 25 06/30/2025 ALLER GENS, ZONE 1 M515-WkJ stemphylium herbarum <0.10 kU/L class 0 Not Available [facility]) [address] [facility] [place], [address], 07/04/2025 03:18:05 06/28/20 25 06/30/2025 ALLER GENS, ZONE 1 Z489-JjH common silver birch <0.10 kU/L class 0 Not Available [facility] ([facility]) [address] [facility] [place], [address], 07/04/2025 03:18:05 06/28/20 25 06/30/2025 ALLER GENS, ZONE 1 O973-DvV oak, white <0.10 kU/L class 0 Not Available [facility] ([facility]) [address], [place], [address], 07/04/2025 03:18:05 06/28/20 25 06/30/2025 ALLER GENS, ZONE 1 O616-PbS elm, belgian <0.10 kU/L class 0 Not Available [facility] ([facility]) [address], [place], [address], 07/04/2025 03:18:05 06/28/20 25 06/30/2025 ALLER GENS, ZONE 1 N675-FnS shabbir, white <0.10 kU/L class 0 Not Available [facility] ([facility]) [address], [place], [address], 07/04/2025 03:18:05 06/28/20 25 06/30/2025 ALLER GENS, ZONE 1 P989-DwP maple/box elder <0.10 kU/L class 0 Not Available [facility] [address], [place], [address], 07/04/2025 03:18:05 06/28/20 25 06/30/2025 ALLER GENS, ZONE 1 L374-WyK hazelnut tree <0.10 kU/L class 0 Not Available [facility] ([facility]) [address], [place], [address], 07/04/2025 03:18:05 06/28/20 25 06/30/2025 ALLER GENS, ZONE 1 X132-XxE hickory, white <0.10 kU/L class 0 Not Available [facility] ([facility]) [address], [place], [address], 07/04/2025 03:18:05 06/28/20 25 06/30/2025 ALLER GENS, ZONE 1 G659-PeE white mulberry <0.10 kU/L class 0 Not Available [facility] ([facility]) [address], [place], [address], 07/04/2025 03:18:05 06/28/20 25 06/30/2025 ALLER GENS, ZONE 1 N240-AcH cedar, mountain <0.10 kU/L class 0 Not Available [facility] ([facility]) [address], [place], [address], 07/04/2025 03:18:05 06/28/20 25 06/30/2025 ALLER GENS, ZONE 1 B127-LoD ragweed, short <0.10 kU/L class 0 Not Available [facility] ([facility]) [address], [place], [address], 07/04/2025 03:18:05 06/28/20 25 06/30/2025 ALLER GENS, ZONE 1 D363-HaN mugwort <0.10 kU/L class 0 Not Available [facility] ([facility]) [address], [place], [address], 07/04/2025 03:18:05 06/28/20 25 06/30/2025 ALLER GENS, ZONE 1 T048-TrF plantain, macedonian <0.10 kU/L class 0 Not Available [facility] ([facility]) [address], [place], [address], 07/04/2025 03:18:05 06/28/20 25 06/30/2025 ALLER GENS, ZONE 1 Z430-LwC pigweed, common <0.10 kU/L class 0 Not Available [facility] ([facility]) [address], [place], [address], 07/04/2025 03:18:05 06/28/20 25 06/30/2025 ALLER GENS, ZONE 1 L931-YuX sheep sorrel <0.10 kU/L class 0 Not Available [facility] ([facility]) [address] [facility], [place], [address], 07/04/2025 03:18:05 06/28/20 25 06/30/2025 ALLER GENS, ZONE 1 L514-BmP nettle <0.10 kU/L class 0 Not Available [facility] ([facility]) [address] [facility] [address], [place], [address], 07/04/2025 03:18:05 06/28/20 25 06/30/2025 IMMUN OGLOB ULIN E, TOTAL immunoglobul in E, total 92 IU/mL 6-495 Not Available [facility] ([facility]) [address] [facility], [place], [address], 07/04/2025 03:18:05 07/04/20 25 06/18/2025 MRI, brain + brain stem, w/o contr ast No observ ation record ed. [email or web address] Not Available 06/12 09:07:28 07/04/2006/18/2025 CT, head, w/o contr ast No observ ation record ed. [email or web address] Not Available 06/12 09:08:57 Result Notes None recorded. Problems Name Problem SNOMED Code Status Onset Date Resolution Date Notes Provider Name and Address Organization Details Recorded Time Deviated nasal septum 171381491 Active 2004 Charity mclain [place] - [facility] 5 10:14:00 Anxiety state 070461092 Active 2004 Charity mclain [place] - [facility] 5 10:14:00 Gastroeso phageal reflux disease 166448173 Active 2006 Charity mclain [place] - [facility] 5 10:14:00 Erectile dysfuncti on 414062785 Active 2008 Charity mclain [place] - [facility] 5 10:14:00 Degenerat ion of lumbar intervert ebral disc 70212950 Active 2009 Charity mclain, [facility] 5 10:14:00 Osteoarth ritis of toe joint 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 Active 2012 Charity mclain, [facility] 5 10:14:00 Otitis externa of bilateral ears 61616324573 35796 Active 2015 Unspecifi ed otitis externa, bilateral ; Note: Date Diagnosed : 6 2:07 PM (H60.93) Not Available [facility] 4 03:26:37 Chronic infective otitis externa 062081394 Active 2015 Chronic otitis externa; Note: Date Diagnosed : 6 2:06 PM (380.16) Not Available [facility] 4 03:26:37 Posterior rhinorrhe a 92401120 Active 2016 Postnasal drip; Note: Date Diagnosed : 02/16/2017 9:23 AM (R09.82) Not Available [facility] 4 03:26:37 Closed fracture of acetabulu m 03679415 Active 2019 Charity mclain [facility] 5 10:14:00 Retinal detachmen t 23075165 Active 2019 Charity mclain [facility] 5 10:14:00 Mass of skin of right lower limb 84183335715 005514 Active 2022 Charity mclain [place] [facility] 5 10:14:00 Attention deficit hyperacti vity disorder 894610790 Active 2022 Charity mclain MA [facility] 5 10:14:00 Onychomyc osis 884066873 Active 2022 Charity mclain [facility] 5 10:14:00 Dyslexia 90997996 Active 2022 Charity Saeed null, [place] - [facility] 5 10:14:00 Skin lesion 03468985 Active 2022 Charity Archuletaa null, [place] - [facility] 5 10:14:00 Bilateral hearing loss 43810205 Active 2022 Charity Saeed null, [place] - [facility] 5 10:14:00 Sensorine ural hearing loss of bilateral ears 417727036 Active 2023 THAO WARNER, JOAN [address] [facility],[place] [address], [place], [place], [address] , [place] - [facility] 5 11:52:19 Chronic rhinitis 43153723 Active 2023 Charity Saeed null, [place] - [facility] 5 10:14:00 Gastroeso phageal reflux disease without esophagit is 437195301 Active 2023 Charity Saeed null, [place] - [facility] 5 10:14:00 Intertrig o 74835620 Active 2023 Charity Saeed null, [place] - [facility] 5 10:14:00 Rheumatoi d arthritis 73688029 Active 2023 CRISTINO MCFADDEN MD [address] [facility],[place] [address], [place], [place], [address] , [place] - [facility] 5 08:50:57 Impaired fasting glycemia 212779598 Active 2023 Charity Saeed null, [place] - [facility] 5 10:14:00 Chronic sinusitis 07421888 Active 2024 CRISTINO MCFADDEN MD [address] [facility] [[email or web address] [address], [place], [place], [address] , [place] - [facility] 5 08:51:06 Acute maxillary sinusitis 35408830 Active 2024 Kathrin mclain, [place] - [facility] 5 13:22:53 Acute sinusitis 33690450 Active 2024 Kathrin Parrish null, [place] - [facility] 5 13:23:02 Candidias is of mouth 99260786 Active 2024 CRISTINO MCFADDEN MD [address] [address], [place], [address] , [place] - [facility] 5 15:46:35 Polyp of nasal cavity 955643493 Active 2024 Kathrin Parrish null, [place] - [facility] 5 13:50:37 Polypoid sinus degenerat ion 73631941 Active 2024 Kathrin Parrish null, [place] - [facility] 5 13:50:37 Mixed anxiety and depressiv e disorder 066953420 Active 2024 Ruby mclain, [place] - [facility] 5 08:28:08 Headache 79275282 Active 2024 Ruby Farrar null, [place] - [facility] 5 08:28:08 Dyspnea 403917826 Active 2024 Ruby mclain, [place] - [facility] 5 08:28:08 Injury caused by electrica l exposure 815698220 Active 2024 Ruby Farrar null, [place] - [facility] 5 08:28:08 Loss of conscious ness 697886132 Active 2024 Ruby Farrar null, [place] - [facility] 5 08:28:08 Pain of shoulder region 49234458 Active 2024 Ruby Farrar null, [place] - [facility] 5 08:28:08 Full blood count outside reference range 108495368 Active 2024 Ruby mclain, [place] - [facility] 5 08:28:08 Family history of Stomach cancer 144649165 Active 2024 Ruby mclain, [place] - [facility] 5 08:28:08 Patient encounter status 861308776 Active 2024 Ruby mclain, [place] - [facility] 5 08:28:08 Family history of malignant neoplasm of lung 660362633 Active 2024 Ruby mclain, [place] - [facility] 5 08:28:08 Pain of elbow region 91081715 Active 2024 Ruby mclain, [place] - [facility] 5 08:28:08 Allergic rhinitis 87963754 Active 2024 CRISTINO MCFADDEN MD [address] [facility] [address], [place], [address] , [place] - [facility] 5 08:51:40 Immunodef iciency disorder 770047841 Active 2024 CRISTINO MCFADDEN MD [address] [facility] [place] [address], [place], [address] , [place] - [facility] 5 09:15:16 Problem Notes None recorded. Procedures Surgical History Date Name Laterality Status Provider Name and Address Organization Details Recorded Time 06/28/20 25 JMSNasal/Sinus Endoscopy completed CRISTINO BREAUX MD [address] [facility] [address], [place], [address], [facility] - [facility] 06/28/2025 08:53:45 12/01/19 25 NasalEndoscopy_D P completed Kathrin Parrish [place] - [facility] 12/01/2024 14:46:51 08/16/20 24 Comp Audio with Tymps - 33051 & 36316 completed JOAN GUZMÁN [address] [facility] [place] [address], [place], [address], [facility] - [facility] 08/16/2024 13:33:00 08/16/20 24 Fiberoptic Laryngoscopy (Comprehensive) completed CRISTINO BREAUX MD [address] [facility] [place] [address], [place], [address], [facility] - [facility] 08/16/2024 14:17:09 Imaging Results None recorded. Procedure Notes None recorded. Medical Equipment None Reported. Allergies Allergen ID Allergen Name Allergen Category Reaction Reaction Severity Criticality Documentation Date Start Date Code Code System Note Provider Name and Address Organization Details Recorded Time 13011012 Product containin g penicilli n (product) medicatio n other Not available Not available 02/22/2024 16930 8001 SNOMED React ion: unkno wn, unspe cifie d;; Ruby mclain [place] - [facility] 08:27:31 807205 No known allergy (situatio n) Not available Not available Not available Not available 06/28/2025 92485 6003 SNOMED Ruby mclain [place] - [facility] 08:27:30 Medications Name Sig Start Date Stop Date Status Note LastModified by Organization Details LastModified Time celecoxib 200 mg capsule TAKE 1 CAPSULE BY MOUTH TWICE A DAY active Not Available Not Available No t Available cyclobenz aprine 10 mg tablet TAKE 1 TABLET BY MOUTH THREE TIMES A DAY NEEDED FOR MUSCLE SPASM 11/03 completed Not Available Not Available Not Available nystatin 100,000 unit/mL oral suspensio n TAKE 5 MILLILIT ERS BY MOUTH 4 TIMES A DAY 06/28 completed Not Available Not Available Not Available clindamyc in HCl 300 mg capsule TAKE 1 CAPSULE BY MOUTH EVERY 8 HOURS UNTIL FINISHED 11/03 completed Not Available Not Available Not Available cetirizin e 10 mg tablet Take 10 mg by oral route. 06/28 completed Not Available Not Available Not Available clotrimaz ole-betam ethasone 1 %-0.05 % lotion a small amount to affected area 11/03 completed Medicati on ID: [id number] D uration Value: 14 Prescri bed By Name: Francisco singh MD Brand Name: clotrima zole-bet amethaso ne Send Method: E-Prescr ibed Sub s Allowed: subs OK Speci al Instruct ion: Apply with finger to ear canal skin. Me dication GenericN blade: clotrima zole-bet amethaso ne Not Available Not Available Not Available Altamist 0.65 % nasal spray aerosol 1 {spray} by nasal route. 04/21 completed Not Available Not Available Not Available sucralfat e 1 gram tablet TAKE 1 TABLET BY MOUTH 2 (TWO) TIMES A DAY FOR 14 DAYS. active Not Available Not Available No t Available prednison e 20 mg tablet TAKE 3 TABLETS DAILY FOR 3 DAYS, 2 TABLETS DAILY FOR 3 DAYS AND 1 TABLET DAILY FOR 3 DAYS WITH FOOD 06/28 completed Not Available Not Available Not Available meclizine 12.5 mg tablet TAKE 1 TABLET (12.5 MG TOTAL) BY MOUTH 3 (THREE) TIMES A DAY IF NEEDED FOR DIZZINES S. active Not Available Not Available No t Available omeprazol e 40 mg capsule,d elayed release 40 mg by oral route. 07/19 completed Not Available Not Available Not Available doxycycli ne monohydra te 100 mg tablet TAKE 1 TABLET BY MOUTH TWICE A DAY FOR 14 DAYS 11/03 completed Not Available Not Available Not Available ciclopiro x 8 % topical solution APPLY TO AFFECTED AREA AT BEDTIME 11/03 completed Not Available Not Available Not Available famotidin e 20 mg tablet TAKE 1 TABLET BY MOUTH 2 TIMES A DAY FOR 15 DAYS. active Not Available Not Available No t Available methotrex ate sodium 2.5 mg tablet TAKE 10 TABLETS ONCE WEEKLY active Not Available Not Available No t Available tamsulosi n 0.4 mg capsule 08/26 completed Medicati on ID: [id number] R laura: () Brand Name: laly mcfadden Andreina Method: E-Prescr ibed Sub s Allowed: subs OK Medic ationGen ericName : laly in Not Available Not Available Not Available clotrimaz ole-betam ethasone 1 %-0.05 % topical cream Apply twice a day by topical route. 06/28 completed Not Available Not Available Not Available lidocaine 5 % topical patch APPLY 1 PATCH TO SKIN DAILY. LEAVE ON MOST PAINFUL AREA FOR UP TO 12 HRS. LEAVE OFF FOR 12 HOURS 11/03 completed Not Available Not Available Not Available clotrimaz ole 1 % topical solution 11/03 completed Medicati on ID: [id number] [place] By Name: Francisco singh MD Brand Name: clotrima zole Sen d Method: E-Prescr ibed Sub s Allowed: subs OK Speci al Instruct ion: 5 drops to affected ear twice a day Medi cationGe nericNam e: clotrima zole Not Available Not Available Not Available sertralin e 25 mg tablet 25 mg by oral route. 2024 active Not Available Not Available Not Avai lable budesonid e 0.5 mg/2 mL suspensio n for nebulizat ion PLEASE SEE ATTACHED FOR DETAILED DIRECTIO NS active Not Available Not Available No t Available folic acid 1 mg tablet TAKE 1 TABLET DAILY active Not Available Not Available No t Available bisacodyl 5 mg tablet,de layed release TAKE 2 TABLETS BY MOUTH RIGHT BEFORE YOUR FIRST DOSE OF LIQUID PREP. 11/03 completed Not Available Not Available Not Available diclofena c sodium 50 mg tablet,de layed release TAKE 1 TABLET BY MOUTH TWICE A DAY NEEDED FOR PAIN 11/03 completed Not Available Not Available Not Available levofloxa jordi 500 mg tablet TAKE 1 TABLET BY MOUTH EVERY DAY FOR 10 DAYS 11/03 completed Not Available Not Available Not Available fluticaso ne propionat e 50 mcg/actua tion nasal spray,yesy pension SPRAY 2 SPRAYS INTO EACH NOSTRIL EVERY DAY SHAKE GENTLY. CLEAN TIP AND REPLACE CAP AFTER USE. active Not Available Not Available No t Available doxycycli ne hyclate 100 mg tablet TAKE 1 TABLET BY MOUTH TWICE A DAY FOR 14 DAYS 12/01 completed Not Available Not Available Not Available ipratropi um bromide 21 mcg (0.03 %) nasal spray SPRAY 2 SPRAYS BY INTRANAS AL ROUTE 3 TIMES A DAY active Not Available Not Available No t Available loratadin e 10 mg tablet 10 mg by oral route. 07/20 completed Not Available Not Available Not Available amoxicill in 875 mg-potass ium clavulana te 125 mg tablet TAKE 1 TABLET BY MOUTH TWICE A DAY FOR 10 DAYS 11/03 completed Not Available Not Available Not Available ascorbate calcium (vitamin C) 500 mg capsule active Not Available Not Available Not Available ProAir HFA 90 mcg/actua tion aerosol inhaler 2 {puff}s by inhalati on route. 09/29 completed Not Available Not Available Not Available diclofena c 1 % topical gel 06/28 completed Not Available Not Available Not Available GaviLyte- G 236 gram-22.7 4 gram-6.74 gram-5.86 gram oral solution TAKE 240 ML BY MOUTH ONCE FOR 1 DOSE. FOLLOW INSTRUCT IONS GIVEN BY OFFICE. 11/03 completed Not Available Not Available Not Available Vitals Date Recorded Body height Body mass index (BMI) Body weight Provider Name and Address Organization Details Last Updated DateTime 12/01/2024 180.34 cm 25.1 kg/m2 86466.63 g Adrianaanibal Traylor [facility] 12/01/2024 13:02:52 Date Recorded Body height Body mass index (BMI) Body weight Provider Name and Address Organization Details Last Updated DateTime 02/26/2025 180.34 cm 25.8 kg/m2 26534.59 g Charity Saeed [facility] 02/26/2025 10:13:50 Social History None recorded. Functional Status None recorded. Mental Status None recorded. Family History Nothing Reported. Medical History Condition Response Hearing Loss Y Arthritis Y Anxiety Y Depression Y GERD/Reflux Y Immunizations Vaccine Type Date Status Note Provider Nam e and Address Organization Details Recorded Time Influenza, MDCK, quadrivalent, PF 8 completed Charity Archuletaa rayne [facility] 02/26/2025 10:14:07 Influenza, MDCK, quadrivalent, preservative 7 completed Charity mclain [facility] 02/26/2025 10:14:07 zoster recombinant 4 completed Charity Jaimesyka rayne [facility] 02/26/2025 10:14:07 Pneumococcal conjugate PCV20, polysaccharide NNA607 conjugate, adjuvant, PF 3 completed Charity Archuletaa rayne [facility] 02/26/2025 10:14:07 pneumococcal polysaccharide PPV23 7 completed Charity mclain [facility] 02/26/2025 10:14:07 Tdap 8 completed Charity mclain [facility] 02/26/2025 10:14:07 Tdap 2 completed Charity Motyka null, [place] - [facility] 02/26/2025 10:14:07 Pneumococcal conjugate PCV 13 0 completed Charity Motyka null, [place] - [facility] 02/26/2025 10:14:07 TST-PPD intradermal 5 completed Charity Motyka null, [place] - [facility] 02/26/2025 10:14:07 Influenza, high-dose, trivalent, PF 1 completed Charity Motyka null, [place] - [facility] 02/26/2025 10:14:07 Influenza, high-dose, trivalent, PF 0 completed Charity Motyka null, [place] - [facility] 02/26/2025 10:14:07 Influenza, high-dose, trivalent, PF 3 completed Charity Motyka null, [place] - [facility] 02/26/2025 10:14:07 Influenza, split virus, trivalent, preservative 8 completed Charity Motyka null, [place] - [facility] 02/26/2025 10:14:07 Influenza, split virus, trivalent, preservative 1 completed Charity Motyka null, [place] - [facility] 02/26/2025 10:14:07 Influenza, split virus, trivalent, preservative 6 completed Charity Motyka null, [place] - [facility] 02/26/2025 10:14:07 Influenza, split virus, trivalent, preservative 8 completed Charity Motyka null, [place] - [facility] 02/26/2025 10:14:07 Influenza, split virus, trivalent, preservative 5 completed Charity Motyka null, [place] - [facility] 02/26/2025 10:14:07 Influenza, split virus, trivalent, preservative 2 completed Charity Motyka null, [place] - [facility] 02/26/2025 10:14:07 Influenza, split virus, trivalent, preservative 3 completed Charity mclain [facility] 02/26/2025 10:14:07 Influenza, split virus, trivalent, preservative 5 completed Charity mclain [place] - [facility] 02/26/2025 10:14:07 Influenza, split virus, trivalent, preservative 9 completed Charity mclain [facility] 02/26/2025 10:14:07 Influenza, split virus, trivalent, preservative 4 completed Charity mclain [facility] 02/26/2025 10:14:07 Novel [id number]-[id number], preservative-free 9 completed Charity mclain [facility] 02/26/2025 10:14:07 Td (adult), 2 Lf tetanus toxoid, preservative free, adsorbed 8 completed Charity mclain [facility] 02/26/2025 10:14:07 Past Encounters Encounter ID Performer Location Encounter Start Date Encounter Closed Date Diagnosis/Indication Diagnosis SNOMED-CT Code Diagnosis ICD10 Code Diagnosis IMO Codes Diagnosis Note [id number] CRISTINO MCFADDEN MD [facility] [address] [address] 08/16/2024 12:38:28 08/16/2024 14:22:05 Sensorineural hearing loss of bilateral ears 885955385 H90.3 Audiologic al evaluation results:Ri ght ear:Normal sloping to profound sensorineu ral hearing loss with good word recognitio n.Left ear:Normal sloping to profound sensorineu ral hearing loss with good word recognitio n. Tympanomet ry:Right Ear:Type ALeft Ear:Type A Suggest amplificat ion Chronic rhinitis 0469056 6 J31.0 Patient with presumed nonallergi c rhinitis. Suggest saline irrigation s after he gets home from work and a trial of ipratropiu m bromide 3 times a day. [id number] JOAN GUZMÁN [place] [address] [facility] 100 [place] [address] 09/05/2024 12:54:38 09/06/2024 07:48:04 Sensorineural hearing loss of bilateral ears 356428191 H90.3 Patient came with: [employer] Demos used: Infinio 90 Sphere Patient motivation : He has OTC devices but is looking for better clarity. Purchased? Yes Ordered:Ph onak Infinio 90 [id number] right/left Used large vented domes today LANCE scheduled for 09/19 [id number] JOAN GUZMÁN [place] [address] [facility] 100 [place] [address] 09/19/2024 15:46:04 09/20/2024 07:46:43 Sensorineural hearing loss of bilateral ears 624137676 H90.3 Hearing Aid Orientatio n Manufactur er: Phonak Infinio 90 SphereColo r: Sand BeigeEarpi maggie: M2 right/left with large vented domes Serial NumbersRig ht: [id number] eft:[id number] Y3R Warranty: 10/08/2027 Accessorie s: ChargeGo Real ear: Next Visit Reviewed:alysa hamilton red to phone Follow up 3 weeks.Tricia ent knows to call with any major problems. [id number] JOAN GUZMÁN [place] [address] [facility] 100 [place] [address] 10/12/2024 15:53:30 10/14/2024 07:46:23 Sensorineural hearing loss of bilateral ears 580803219 H90.3 Hearing Aid Orientatio n Manufactur er: Phonak Infinio 90 SphereColo r: Sand BeigeEarpi maggie: M2 right/left with large vented domes Serial NumbersRig ht: [id number] eft:[id number] Y3R Warranty: 10/08/2027 Accessorie s: ChargeGo Real ear: Next Visit Reviewed:alysa hamilton red to phone Follow up 3 weeks.Tricia ent knows to call with any major problems. [id number] KATHRIN PARRISH PA-C [facility] [address] [place] [address] 11/03/2024 12:52:47 11/03/2024 13:28:58 Acute sinusitis 93094700 J01.90 Candidiasis of mouth 797 40958 B37.0 reports it [place] abx [id number] THAO CARTERJOAN REARDON [facility] [place] [address] [facility] [address] [place] [address] 11/21/2024 13:53:44 11/22/2024 07:36:52 Sensorineural hearing loss of bilateral ears 253450850 H90.3 Hearing Aid Orientatio n Manufactur er: Phonak Infinio 90 SphereColo r: Sand BeigeEarpi maggie: M2 right/left with large vented domes Serial NumbersRig ht: [id number] eft:[id number] Y3R Warranty: 10/08/2027 Accessorie s: ChargeGo Real ear: Next Visit Reviewed:alysa hamilton red to phone Follow up 3 weeks.Tricia ent knows to call with any major problems. [id number] KATHRIN PARRISH PA-C [facility] [address] [address] 12/01/2024 12:45:39 12/01/2024 13:56:07 Chronic sinusitis 21719108 J32.8 [id number] KATHRIN PARRISH PA-C [facility] [address] [address] 02/26/2025 10:05:30 02/26/2025 10:29:21 Chronic rhinitis 49398592 J31.0 Chronic sinusitis 566472 00 J32.8 [id number] CRISTINO MCFADDEN MD [facility] [address] [address] 06/28/2025 08:24:18 06/28/2025 08:56:28 Rheumatoid arthritis 39318455 M06.9 [id number] Chronic sinusitis 290279 00 J32.8 [id number] Allergic rhinitis 318045 04 J30.9 [id number] THAO CARTERNAUGHJOAN [place] - [place] [address] [facility],[address] [address] [place] [address] 07/03/2025 10:58:33 07/03/2025 11:57:46 Sensorineural hearing loss of bilateral ears 940067951 H90.3 Hearing Aid Orientatio n Manufactur er: Phonak Infinio 90 SphereColo r: Sand BeigeEarpi maggie: M2 right/left with large vented domes Serial NumbersRig ht: [id number] eft:[id number] Y3R Warranty: 10/08/2027 Accessorie s: ChargeGo Real ear: Next Visit Reviewed:alysa hamilton red to phone Follow up 3 weeks.Tricia ent knows to call with any major problems. Health Concerns Section Related Observation LastModified by Organization Detai ls LastModified Time None Recorded Concern Status LastModified by Organization Details LastModified Time None Recorded Advance Directives Directive None Recorded Payers Insurance Date Sequence Insurance Name Policy Number Policy Epstein Covered Member ID Epstein Member ID Guarantor Name 07/03/2025 1 [facility] [employer] [facility] (HMO) [employer] Zach Rush [id number] Zach Rush Notes Date Note Type Note Provider Name and Address Organization Details Recorded Time 12/01/2024 text/html ROS as noted in the HPI 69 year old male presents for follow up of sinusitis. He completed a 3 week couse of Doxycycline 1 week ago. He reports increased green drainage now that he is off antibiotics from both nostrils. He had some facial pressure before the antibiotics that has resolved now. He is mostly bothered by the drainage which now alternates between clear and green. He reports allergy testing in the past which was only positive for rabbits. He does not smoke. He uses Flonase and neti pot daily. He did have CT head in September 2024 at [facility] which showed moderate thickening of the paranasal sinuses. RADHA DOMINGO MD [address] [facility] [[email or web address]] [address], [place], [id number], [facility] - [facility] 12/02/2024 15:30:18 02/26/2025 text/html ROS as noted in the HPI 70 year old male presents for follow up of his sinuses. At the end of October he was issued three week course of Doxycycline for acute sinusitis. At visit end of November his symptoms had not fully resolved and he was issued a course of Prednisone. He noted some improvement with Prednisone. He has less green discharge. He has been performing sinus rinses twice daily. He still feels that he is getting clogged up again. Back in August 2024 Dr. Breaux had prescribed him Ipratropium. He thinks this helped a bit but reports that he ran out. He is concerned that his deviated septum is contributing to his recurrent sinus congestion. In the past he would suffer from 1-2 sinus infections per year and now he feels like it is one right after another. Recently he has had a productive cough as well. CRISTINO BREAUX MD [address] [facility],[address], [id number], [facility] - [facility] 02/26/2025 13:17:48 06/28/2025 text/html ROS as noted in the HPI Zach Rush is a 70-year-old male who presents for evaluation of chronic sinus inflammation. He reports a history of recurrent sinus infections, with the last episode occurring approximately four months ago. He experiences intermittent postnasal drainage, which occasionally leads to choking episodes due to mucus buildup. He has been using fluticasone nasal spray and performing sinus rinses, which have helped reduce the frequency of infections. 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 He denies smoking for the past 47 years. He has a history of rheumatoid arthritis and is currently on methotrexate, which suppresses his immune system. He also has a deviated septum, described as high to the right and low to the left, which may impair sinus drainage but does not predispose him to infections. During workup following high-voltage electrocution, he was noted to have mucosal thickening in the sinuses predominantly sphenoid sinuses left greater than right. I reviewed the MRI and CT scan from April CRISTINO BREAUX MD [address] [facility],[address], [address], [place] - [facility] 06/28/2025 08:57:25
[2025-10-06 02:32] LABS: Alanine Aminotransferase 27 U/L (0-40); Albumin Level 4.8 g/dL (3.5-5.0); Alkaline Phosphatase 44 U/L (39-117); Anion Gap 13 (12-20); Aspartate Amino Transferase 27 U/L (5-37); Blood Urea Nitrogen 16 mg/dL (9-16); Calcium 9.6 mg/dL (8.4-10.2); Carbon Dioxide 26 mmol/L (22-29); Chloride 107 mmol/L (96-108); Creatinine Clr Calc Pharmacy 87.1; Estimated Glomerular Filt Rate > 60; Potassium 3.9 mmol/L (3.3-5.1); Sodium 142 mmol/L (135-145); Total Protein 7.6 g/dL (6.5-8.0)
[2025-10-06 02:33] LABS: Resp Syncy Virus RNA Qual PCR NEGATIVE (Negative); SARS COV2 PCR INHOUSE NEGATIVE (Negative)
--- NOTE | 2025-10-06 02:41 | ED_ITS ---
HPI - Fall General Chief Complaint: Fall Stated Complaint: UNWIT FALL/5 STEPS,UNK LOC,L SHOULDE/NECK PAIN Time Seen by Provider: 10/06/25 02:40 Source: patient and EMS Mode of arrival: EMS Limitations: no limitations History of Present Illness ED Provider: Shaquille FARMER HPI Narrative: The patient is a 70-year-old male who presents after a fall that occurred shortly after midnight today. Patient awoke with stomach growling, cold sweats, nausea, dizziness, and an urgent need for a bowel movement. He stood up from bed, became ?really dizzy,? fell back onto the bed, then scooted on the floor out of his room and down a flight of 13 stairs on his buttocks in an attempt to reach the bathroom. He recalls descending approximately 4-5 steps before losing awareness and subsequently woke up upside-down at the bottom landing. He then crawled to the bathroom and passed large amounts of watery stool. Denies associated hematochezia or melena. Patient reports during the episode at home, he experienced nausea, and mild, intermittent chest tightness which has since improved. He denies any associated fever, vomiting, headache, cough, and abdominal pain, or other recent trauma. Patient reports since the fall he has been experiencing a dull, achy pain in his left neck radiating to the shoulder blade region, which is exacerbated by palpation and movement. The patient reports his granddaughter was sick with a diarrheal illness 7 days ago, and his significant other experienced a similar diarrheal illness 4 days ago, both individuals experienced 24 hours of diarrhea and subsequent spontaneous resolution of symptoms. Related Data Previous Rx's ?Medication ?Instructions ?Recorded cephalexin 500 mg capsule 500 mg PO QID 7 days #28 cap s 08/27/22 doxycycline hyclate 100 mg capsule 100 mg PO BID 7 day s #14 caps 08/27/22 cyclobenzaprine 10 mg tablet 10 mg PO TID PRN muscle s pasm #15 08/21/23 tabs lidocaine 5 % topical patch 1 patch topical DAILY #15 ea 08/21/23 (Lidoderm) prednisone 20 mg tablet 40 mg (2 x 20 mg) PO DAILY # 10 tabs 08/21/23 acetaminophen 500 mg capsule 1,000 mg (2 x 500 mg) PO .q8 PRN 10/06/25 fever or pain #30 caps cyclobenzaprine 10 mg tablet 10 mg PO TID PRN muscle s pasm #14 10/06/25 tabs ibuprofen 600 mg tablet 600 mg PO Q8H PRN fever or p ain 10/06/25 #30 tabs Allergies Allergy/AdvReac Type Severity Reaction Status Date / Time No Known Allergies Allergy Verified 10/06/25 01:35 Review of Systems 2 Review of Systems: Yes all other systems are reviewed and are negative PMFSH Past Medical History Medical History Rheumatoid arthritis Social History Social History Alcohol intake: never Smoked in Last 30 Days: No Use of substances other than those prescribed or required for medical reasons: No Advance Directives: No Advance Directives Information Provided: Yes Do you have a plan to hurt others: No Plan Physical Exam 2 Vital Signs: Vital Signs: Last Vital Signs Temp 97.3 F 10/06/25 05:41 Pulse 92 10/06/25 05:41 Resp 16 10/06/25 05:41 BP 105/70 10/06/25 05:41 Pulse Ox 93 10/06/25 05:41 O2 Del Method Room Air 10/06/25 05:41 BMI result Body Mass Index 24.4 CONSTITUTIONAL: The patient appears non-toxic, well nourished and in no acute distress. Vital signs as documented. HEAD: Atraumatic, normocephalic. EYES: EOMs grossly intact, pupils equal, conjunctiva clear, no exudate. ENT: Nares patent, no discharge. Airway patent, no audible stridor, visible mucosa is pink and moist without noted lesions. NECK: Trachea is midline, there is tenderness of the left paraspinal muscles and left trapezius, no midline spinous process tenderness, no crepitus or step-off. no obvious masses or gross abnormalities. CHEST: Symmetric movement, normal appearance. LUNGS: LS present and CTAB, no w/r/r. Non-labored work of breathing. CARDIAC: Regular Rhythm, S1/S2 appreciated, no murmurs, rubs or gallops. ABDOMEN: Abdomen soft and non-tender x4 quadrants, no palpable masses or organomegaly. : Deferred. EXTREMITIES: Normal tone, moves all extremities spontaneously without reported pain. No obvious acute injury or deformity noted. NEURO: Alert and oriented x3, CN II-XII appear grossly intact. Cerebellar Functioning grossly intact. No obvious sensory or motor deficits. Speech clear and appropriate. PSYCH: normal affect, appropriate eye contact, fluid speech, with appropriate response to questioning. No reported suicidality or homicidality. SKIN: Warm, dry, color appropriate, normal turgor. No rashes noted. Medications Administered Discontinued Medications Generic Name Dose Route Start Last Admin Trade Name Edmundo PRN Reason Stop Dose Admin Acetaminophen 975 mg 10/06/25 04:38 10/06/25 05:33 Acetaminophen 325 Mg Tablet PO 10/06/25 04:39 975 mg ONCE ONE Administration Cyclobenzaprine HCl 10 mg 10/06/25 04:38 10/06/25 05:33 Cyclobenzaprine Hcl 10 Mg Tablet PO 10/06/25 04:39 10 mg ONCE ONE Administration Ibuprofen 600 mg 10/06/25 04:38 10/06/25 05:32 Ibuprofen 600 Mg Tablet PO 10/06/25 04:39 600 mg ONCE ONE Administration Medical Decision Making Medical Decision Making MDM Narrative: 3:53 AM 10/06/2025 (Beatriz FARMER): The patient is a 70-year-old male who presents after a fall that occurred shortly after midnight today. Patient awoke with stomach growling, cold sweats, nausea, dizziness, and an urgent need for a bowel movement. He stood up from bed, became ?really dizzy,? fell back onto the bed, then scooted on the floor out of his room and down a flight of 13 stairs on his buttocks in an attempt to reach the bathroom. He recalls descending approximately 4-5 steps before losing awareness and subsequently woke up upside- down at the bottom landing. He then crawled to the bathroom and passed large amounts of watery stool. Denies associated hematochezia or melena. Patient reports during the episode at home, he experienced nausea, and mild, intermittent chest tightness which has since improved. He denies any associated fever, vomiting, headache, cough, and abdominal pain, or other recent trauma. Patient reports since the fall he has been experiencing a dull, achy pain in his left neck radiating to the shoulder blade region, which is exacerbated by palpation and movement. The patient reports his granddaughter was sick with a diarrheal illness 7 days ago, and his significant other experienced a similar diarrheal illness 4 days ago, both individuals experienced 24 hours of diarrhea and subsequent spontaneous resolution of symptoms. On exam the patient has mild tenderness of the left paraspinal cervical muscles and trapezius, no midline spinous process tenderness, crepitus, or step-off. The patient has limited range of motion secondary to pain. Remainder of the patient's exam is benign, no abdominal tenderness. The patient's laboratory evaluation shows no leukocytosis, anemia, electrolyte abnormality, or RADHA. LFTs are unremarkable, viral swabs are negative for COVID, influenza, and RSV. The patient's EKG is nonischemic, troponin is normal. The patient was sent for CT head and neck to evaluate neck pain in this unwitnessed fall. CT imaging results are pending. 4:43 AM 10/06/2025 (Beatriz FARMER): The patient's CT head and neck are unremarkable, no calvarial or cervical fracture, no intracranial hemorrhage. The patient will be treated with anti-inflammatories and muscle relaxers. The patient is likely suffering from a viral gastroenteritis given his recent sick contacts and reassuring workup. The patient's fall does not appear to have resulted in any fractures or other acute injury. The patient will be discharged with supportive care and instructed to follow up with PCP. Admission/Observation Consideration of admission/observation: Escalation of care including admission/observation considered Lab Data MDM Lab Attestation statement: I reviewed the patient's lab results. 10/06/25 01:45 10/06/25 01:45 Labs: Lab Results 10/06/25 Range/Units 01:45 WBC 8.9 (4.8-10.8) X10*3/uL RBC 5.18 (4.60-5.80) X10*6/uL Hgb 17.2 (14.0-18.0) g/dl Hct 48.0 (42.0-52.0) % MCV 92.7 (80.0-98.0) fL MCH 33.2 H (27.0-33.0) pg MCHC 35.8 (31.0-36.0) g/dl RDW 14.0 (11.0-16.0) % Plt Count 198 (160-400) X10*3/uL MPV 10.1 (9.4-12.4) fL Immature Gran % (Auto) 0.3 (0.0-0.4) % Neut % (Auto) 86.8 H (45-73) % Lymph % (Auto) 6.9 L (20-40) % [place] % (Auto) 4.6 (2-11) % Eos % (Auto) 1.1 (0-4) % Baso % (Auto) 0.3 (0-2) % Lymph # (Auto) 0.6 L (1.2-4.9) X10*3/uL [place] # (Auto) 0.4 (0.1-1.2) X10*3/uL Eos # (Auto) 0.1 (0.0-0.4) X10*3/uL Baso # (Auto) 0.0 (0.0-0.2) X10*3/uL Abs Immat Gran (auto) 0.03 (0.00-0.03) X10*3/uL Absolute Neuts (auto) 7.7 (2.0-8.3) x10*3/uL Absolute Nucleated RBC 0.000 (0.0-0.012) X10*3/uL Nucleated RBC % (auto) 0.0 (0.0-0.2) /100WBC Sodium 142 (135-145) mmol/L Potassium 3.9 (3.3-5.1) mmol/L Chloride 107 (96-108) mmol/L Carbon Dioxide 26 (22-29) mmol/L Anion Gap 13 (12-20) BUN 16 (9-16) mg/dL Creatinine 0.84 (0.5-1.4) mg/dL Estim Creat Clear Calc 87.1 Estimated GFR > 60 Random Glucose 132 H (60-115) mg/dL Calcium 9.6 (8.4-10.2) mg/dL Total Bilirubin 0.7 (0.0-1.0) mg/dL AST 27 (5-37) U/L ALT 27 (0-40) U/L Alkaline Phosphatase 44 (39-117) U/L Troponin I High Sens < 2.7 (<3.5-35.0) ng/L Total Protein 7.6 (6.5-8.0) g/dL Albumin 4.8 (3.5-5.0) g/dL Influenza Type A (PCR) NEGATIVE (Negative) Influenza Type B (PCR) NEGATIVE (Negative) RSV RNA Qual (PCR) NEGATIVE (Negative) SARS-CoV-2 RNA (RT-PCR) NEGATIVE (Negative) Independent Interpretation I performed an independent interpretation of an: EKG (EKG shows sinus rhythm with a rate of 74, left axis deviation, no acute ischemia, no ectopy. QTC 437. There are no old for comparison. ) Radiology Impression Discussion of test interpretation with radiology: I have reviewed the radiologist's reading. Radiologist Impression: CT cervical spine without contrast Comparison: None provided Findings: There is straightening of the normal cervical lordosis. There is grade 1 anterolisthesis of C4 on C5. Multilevel cervical spine degenerative changes are present characterized by disc height loss, endplate sclerosis and disc osteophyte complex formation. No acute fractures or dislocations. No acute findings on limited view of the intracranial contents. Soft tissues of the neck are normal. Lung apices are clear. IMPRESSION: No acute findings. This document has been electronically signed by: Kalia Lala MD, PHD on 10/06/2025 04:13:54 CT head without contrast Comparison: None provided Findings: No intra-axial mass, midline shift, hydrocephalus, or acute hemorrhage. No significant atrophy-like change or white matter disease. There is no sinus or mastoid fluid. The orbits are unremarkable. No skull fracture. IMPRESSION: 1. No acute intracranial findings. This document has been electronically signed by: Kalia Lala MD, PHD on 10/06/2025 04:12:25 External Record Review External record reviewed: Outpatient record Discharge Plan Discharge Clinical Impression: Viral diarrhea, Muscle strain of upper back Fall Qualifiers: Encounter type: initial encounter Qualified Code(s): W19.XXXA - Unspecified fall, initial encounter Patient Disposition: Home, Self-Care Instructions: Acute Diarrhea (ED), Thoracic Back Strain (ED), Enteritis (ED) Additional Instructions: Thank you for choosing [facility]'s Emergency Department for your care today. Thankfully your laboratory evaluation, EKG, viral swabs, and CTs of your head and neck show no evidence of an acute emergent process requiring admission to the hospital or continued ED observation, and it is safe to discharge you home. Your fall today does not appear to have resulted in any fracture or intracranial bleeding. Your labs show no evidence of a systemic bacterial infection, anemia, electrolyte abnormality, kidney dysfunction, or cardiac cause for your fall down the stairs. Your viral swabs were negative for influenza and COVID. Your diarrhea is likely secondary to a viral gastroenteritis. Please avoid antidiarrheal medication as this could prolonged the duration of your symptoms by preventing your body from expelling the virus. You should take alternating (staggered) doses of ibuprofen 600mg and Tylenol 1000mg every 4 hours as needed for any additional pain. Please stay well hydrated and get plenty of rest. As a part of your care plan, you have also been prescribed a muscle relaxer called Flexeril. Please take this medication only for severe pain or spasm that is not relieved by ibuprofen and/or Tylenol. Muscle relaxer medications can carry high risk of unintentional addiction and abuse. Take this medication only as directed and only if absolutely necessary. This medicine can make you drowsy, you are not allowed to drive, operate heavy machinery, or be the sole care provider for children while taking this medication. Please follow up with your primary care physician for re-evaluation, additional management of your symptoms, and continued preventative care. If you do not have a primary care physician, please call the [facility] at [phone] to establish a new primary care physician. While waiting to establish your new primary care physician, you can call our Walk-in [facility] at [phone] for non-emergency needs. Please return to the emergency department if you develop a severe or sudden change in your symptoms, a fever over 100.4 that does not improve with Tylenol or Ibuprofen, recurrent vomiting, or any other new or worsening symptoms or concerns. Prescriptions: New acetaminophen 500 mg capsule 1,000 mg PO .q8 PRN (Reason: fever or pain) Qty: 30 0RF cyclobenzaprine 10 mg tablet 10 mg PO TID PRN (Reason: muscle spasm) Qty: 14 0RF ibuprofen 600 mg tablet 600 mg PO Q8H PRN (Reason: fever or pain) Qty: 30 0RF No Action cephalexin 500 mg capsule 500 mg PO QID 7 Days Qty: 28 0RF doxycycline hyclate 100 mg capsule 100 mg PO BID 7 Days Qty: 14 0RF cyclobenzaprine 10 mg tablet 10 mg PO TID PRN (Reason: muscle spasm) Qty: 15 0RF lidocaine [Lidoderm] 5 % adhesive patch,medicated 1 patch topical DAILY Qty: 15 0RF Rx Instructions: leave on most painful area for up to 12 hrs prednisone 20 mg tablet 40 mg PO DAILY Qty: 10 0RF Referrals: Lissy Mercedes MD [Primary Care Provider, Internal Medicine] Clinical Impression: Viral diarrhea; Muscle strain of upper back; Fall Print Language: Lithuanian
[2025-10-06 02:43] LABS: Troponin-I High Sensitivity < 2.7 ng/L (<3.5-35.0)
[2025-10-06 05:41] VITALS: BP 105/70; PULSE 92; RESP 16; TEMP 36.3; O2SAT 93
== END 2025-10-06 05:30 | disposition home or self-care (01) ==
PROVIDERS: Emergency Provider Emergency Medicine; PCP Internal Medicine
DX: A08.39 Other viral enteritis (principal); S29.012A Strain of muscle and tendon of back wall of thorax, initial encounter; W10.8XXA Fall (on) (from) other stairs and steps, initial encounter; R42 Dizziness and giddiness; Y93.89 Activity, other specified; Y92.018 Other place in single-family (private) house as the place of occurrence of the external cause; Y99.9 Unspecified external cause status; Z03.818 Encounter for observation for suspected exposure to other biological agents ruled out
CPT/HCPCS: 36415; 70450; 72125; 80053; 84484; 85025; 87637; 93005; 99284

== ENCOUNTER → 2025-10-06 01:42 | Outpatient (BNV) | payer MEDICARE, SELFPAY | PROVIDERS: Emergency Provider Emergency Medicine; PCP Internal Medicine; Visit Provider Internal Medicine Cardiovascular Disease | DX: R94.31 Abnormal electrocardiogram [ECG] [EKG] (principal); R07.89 Other chest pain | CPT/HCPCS: 93010 ==

== ENCOUNTER → 2025-10-06 02:41 | Outpatient (BNV) | payer MEDICARE, SELFPAY | PROVIDERS: Emergency Provider Emergency Medicine; PCP Internal Medicine; Visit Provider General Practice | DX: S09.90XA Unspecified injury of head, initial encounter (principal); Z04.3 Encounter for examination and observation following other accident | CPT/HCPCS: 70450; 72125 ==